=== PATIENT | female | born 1945 | race Caucasian/White ===

== ENCOUNTER → 2021-11-14 15:29 | Outpatient (CLI) | payer MEDICARE, MEDICAID, SELFPAY ==
[2021-11-14 18:04] LABS: Add Manual Diff / Slide Review NO; Basophils Absolute Auto 0 /uL (0-100); Basophils Percent Auto 0.4 % (0-2); Eosinophils Absolute Auto 100 /uL (0-450); Eosinophils Percent Auto 2.1 % (2-4); Hematocrit 38.1 % (36-46); Hemoglobin 12.9 g/dL (12.0-16.0); Lymphocytes Absolute Auto 1200 /uL (1100-4500); Lymphocytes Percent Auto 17.2 % (25-40); Mean Corpuscular HGB Conc 33.9 % (30-36); Mean Corpuscular Hemoglobin 31.8 PG (26-34); Monocytes Absolute Auto 500 /uL (0-900); Monocytes Percent Auto 7.7 % (3-14); Neutrophils Absolute Auto 4900 /uL (1500-7000); Neutrophils Percent Auto 72.6 % (50-75); Platelet Count 312 X10^3/uL (150-400); Red Blood Cell Count 4.05 X10^6/uL (4.0-5.2); Red Cell Distribution Width 12.6 % (11.6-14.8); White Blood Cell Count 6.8 X10^3/uL (4.5-11.0)
[2021-11-14 18:23] LABS: Cholesterol 170 mg/dL (140-199); HDL Cholesterol 52 mg/dL (40-60); LDL Cholesterol Calculated 97 mg/dL (<100); Triglycerides 107 mg/dL (35-150)
[2021-11-14 18:40] LABS: Vitamin D 25 Hydroxy (D3) 40.1 ng/mL (30.0-100.0)
[2021-11-14 18:40] LABS: Bacteria Urine Many (>30); Culture Indicated Urine Specimen Cultured; RBC Urine 1-5/HPF (0-5/HPF); WBC Urine 5-10/HPF (0-5/HPF)
[2021-11-14 18:59] LABS: Creatinine Urine Random 21.9 mg/dL; Protein (Total) Urine Random 11 mg/dL (0-12)
[2021-11-15 16:50] LABS: Free T4, Direct Thyroxine 1.01 ng/dL (0.78-2.19)
== END ==
PROVIDERS: PCP Family Medicine; Referring Provider Family Medicine; Visit Provider Family Medicine
DX: E55.9 Vitamin D deficiency, unspecified (principal); I10 Essential (primary) hypertension; E78.5 Hyperlipidemia, unspecified; M19.90 Unspecified osteoarthritis, unspecified site; M79.7 Fibromyalgia; Z13.29 Encounter for screening for other suspected endocrine disorder; R41.89 Other symptoms and signs involving cognitive functions and awareness
CPT/HCPCS: 36415; 80061; 81015; 82306; 82570; 84156; 84439; 84443; 85025; 87077; 87086; 87186

== ENCOUNTER → 2022-03-14 11:28 | Outpatient (CLI) | payer MEDICARE, MEDICAID, SELFPAY ==
--- NOTE | 2022-03-14 11:36 | DI.RAD.S_ITS ---
PROCEDURE: XR KNEE RT 3V INDICATIONS: BILATERAL KNEE PAIN TECHNIQUE: 3 views of the knee were acquired. COMPARISON: Located Within [facility], CR, XR KNEE LT 3V, 03/14/2022, 11:40. FINDINGS: Bones: No acute fractures or dislocations. No suspicious bony lesions. Tricompartmental degenerative changes present. Joint space loss at the medial compartment is severe with articular surface deformity and spurring. Mild lateral compartment narrowing, moderate patellofemoral compartment narrowing, spurring also present in both compartments. Soft tissues: No joint effusion. No suspicious soft tissue calcifications. IMPRESSION: Tricompartmental degenerative changes, severe at the medial compartment. Dictated by: Ministerio Parmar M.D. on 03/14/2022 at 13:52 Approved by: Ministerio Parmar M.D. on 03/14/2022 at 13:53
--- NOTE | 2022-03-14 11:36 | DI.RAD.S_ITS ---
PROCEDURE: XR KNEE LT 3V INDICATIONS: BILATERAL KNEE PAIN TECHNIQUE: 3 views of the knee were acquired. COMPARISON: [facility], CR, XR KNEE RT 3V, 03/14/2022, 11:40. FINDINGS: Bones: No acute fractures or dislocations. No suspicious bony lesions. Tricompartmental joint space loss, severe at the medial compartment, moderate at the lateral and patellofemoral compartments. Spurring and articular surface deformity also present at the medial compartment. Soft tissues: No joint effusion. No suspicious soft tissue calcifications. IMPRESSION: Tricompartmental degenerative changes of the knee, severe at the medial compartment. Dictated by: Ministerio Parmar M.D. on 03/14/2022 at 13:49 Approved by: Ministerio Parmar M.D. on 03/14/2022 at 13:51
== END ==
PROVIDERS: PCP Family Medicine; Referring Provider Family Medicine; Visit Provider Family Medicine
DX: M25.561 Pain in right knee (principal); M25.562 Pain in left knee; M19.90 Unspecified osteoarthritis, unspecified site
CPT/HCPCS: 73562

== ENCOUNTER → 2022-03-19 07:37 | Outpatient (CLI) | payer MEDICARE, MEDICAID, SELFPAY ==
[2022-03-19 09:19] LABS: TSH w/ Reflex to FT4 0.38 uIU/mL (0.47-4.68)
[2022-03-19 09:33] LABS: Vitamin B12 558 pg/mL (239-931)
[2022-03-19 10:15] LABS: Free T4, Direct Thyroxine 1.04 ng/dL (0.78-2.19)
[2022-03-26 01:36] LABS: Methylmalonic Acid,Serum 179 nmol/L (0-378)
== END ==
LOC: LAB 07:43 → RESP 09:05
PROVIDERS: PCP Family Medicine; Referring Provider Internal Medicine; Visit Provider Internal Medicine
DX: F03.B0 Unspecified dementia, moderate, without behavioral disturbance, psychotic disturbance, mood disturbance, and anxiety (principal); Z79.899 Other long term (current) drug therapy
CPT/HCPCS: 36415; 82607; 83921; 84439; 84443; 93005

== ENCOUNTER → 2022-10-07 08:28 | Outpatient (CLI) | payer MEDICARE, MEDICAID, SELFPAY ==
[2022-10-07 09:11] LABS: Add Manual Diff / Slide Review NO; Basophils Absolute Auto 0 /uL (0-100); Basophils Percent Auto 0.4 % (0-2); Eosinophils Absolute Auto 100 /uL (0-450); Eosinophils Percent Auto 1.4 % (2-4); Hematocrit 34.1 % (36-46); Hemoglobin 11.6 g/dL (12.0-16.0); Lymphocytes Absolute Auto 1000 /uL (1100-4500); Lymphocytes Percent Auto 12.5 % (25-40); Mean Corpuscular Hemoglobin 29.3 PG (26-34); Mean Corpuscular Volume 86.3 fL (80-100); Monocytes Absolute Auto 600 /uL (0-900); Monocytes Percent Auto 7.7 % (3-14); Neutrophils Absolute Auto 6400 /uL (1500-7000); Platelet Count 323 X10^3/uL (150-400); Red Blood Cell Count 3.95 X10^6/uL (4.0-5.2); Red Cell Distribution Width 13.3 % (11.6-14.8); White Blood Cell Count 8.2 X10^3/uL (4.5-11.0)
[2022-10-07 09:37] LABS: Alanine Aminotransferase 16 IU/L (<35); Albumin 3.8 g/dL (3.5-5.0); Albumin Globulin Ratio 1.5 (1.0-2.8); Alkaline Phosphatase 54 U/L (38-126); Aspartate Aminotransferase 21 IU/L (14-36); BUN Creatinine Ratio 24.4 (6-22); Bilirubin Total 0.4 mg/dL (0.2-1.3); Blood Urea Nitrogen 11 mg/dL (7-17); Calcium 8.7 mg/dL (8.4-10.2); Carbon Dioxide 25 mmol/L (22-32); Chloride 102 mmol/L (98-107); Cholesterol 181 mg/dL (140-199); Estimated Glomerular Filt Rate > 60 mL/min (>60); Globulin 2.6 g/dL (1.7-4.1); Glucose 99 mg/dL (80-110); HDL Cholesterol 49 mg/dL (40-60); HEMOLYSIS < 15 (0-50); LDL Cholesterol Calculated 108 mg/dL (<100); Sodium 134 mmol/L (137-145); Total Protein 6.4 g/dL (6.3-8.2); Triglycerides 120 mg/dL (35-150)
[2022-10-07 09:40] LABS: High Sensitivity CRP - Cardiac 3.6 mg/L (1.0-3.0)
== END ==
PROVIDERS: PCP Family Medicine; Referring Provider Family Medicine; Visit Provider Family Medicine
DX: E78.2 Mixed hyperlipidemia (principal); I10 Essential (primary) hypertension; R31.29 Other microscopic hematuria
CPT/HCPCS: 36415; 80053; 80061; 85025; 86140

== ENCOUNTER → 2024-05-31 10:46 | Outpatient (CLI) | payer MEDICARE, MEDICAID, SELFPAY ==
[2024-05-31 11:52] LABS: Creatinine Urine Random 68.32 mg/dL; Protein (Total) Urine Random 17 mg/dL (0-12); Protein Creatinine Ratio Urine 0.24 GRAM/24H
[2024-05-31 11:53] LABS: Add Manual Diff / Slide Review NO; Basophils Absolute Auto 0 /uL (0-100); Basophils Percent Auto 0.5 % (0-2); Eosinophils Absolute Auto 200 /uL (0-450); Eosinophils Percent Auto 2.5 % (2-4); Hematocrit 39.1 % (36-46); Hemoglobin 13.3 g/dL (12.0-16.0); Lymphocytes Absolute Auto 1200 /uL (1100-4500); Lymphocytes Percent Auto 14.1 % (25-40); Mean Corpuscular Hemoglobin 30.5 PG (26-34); Mean Corpuscular Volume 89.6 fL (80-100); Monocytes Absolute Auto 800 /uL (0-900); Neutrophils Absolute Auto 6200 /uL (1500-7000); Neutrophils Percent Auto 72.9 % (50-75); Platelet Count 329 X10^3/uL (150-400); Red Blood Cell Count 4.37 X10^6/uL (4.0-5.2); Red Cell Distribution Width 13.3 % (11.6-14.8); White Blood Cell Count 8.5 X10^3/uL (4.5-11.0)
[2024-05-31 12:22] LABS: Alanine Aminotransferase 16 IU/L (<35); Albumin 4.3 g/dL (3.5-5.0); Albumin Globulin Ratio 1.7 (1.0-2.8); Alkaline Phosphatase 72 U/L (38-126); Aspartate Aminotransferase 25 IU/L (14-36); Bilirubin Total 0.5 mg/dL (0.2-1.3); Blood Urea Nitrogen 18 mg/dL (7-17); Calcium 9.4 mg/dL (8.4-10.2); Carbon Dioxide 27 mmol/L (22-32); Chloride 100 mmol/L (98-107); Cholesterol 228 mg/dL (140-199); Estimated Glomerular Filt Rate > 60 mL/min (>60); Globulin 2.5 g/dL (1.7-4.1); Glucose 90 mg/dL (80-110); HDL Cholesterol 53 mg/dL (40-60); HEMOLYSIS < 15 (0-50); LDL Cholesterol Calculated 132 mg/dL (<100); Potassium 4.4 mmol/L (3.4-5.1); Sodium 135 mmol/L (137-145); Total Protein 6.8 g/dL (6.3-8.2); Triglycerides 217 mg/dL (35-150)
== END ==
PROVIDERS: PCP Family Medicine; Referring Provider Family Medicine; Visit Provider Family Medicine
DX: I10 Essential (primary) hypertension (principal); E78.2 Mixed hyperlipidemia
CPT/HCPCS: 36415; 80053; 80061; 82570; 84156; 85025; 86140

== ENCOUNTER → 2024-08-04 13:23 | Outpatient (CLI) | payer MEDICARE, MEDICAID, SELFPAY ==
--- NOTE | 2024-08-04 13:30 | DI.RAD.S_ITS ---
PROCEDURE: XR HAND RT 2V INDICATIONS: bump on hand TECHNIQUE: 3 views of the hand(s) acquired. COMPARISON: None. FINDINGS: Bones: Diffuse osteoporosis noted. Joints: Severe STT and 1st CMC degeneration appreciated. 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 Dictated by: Celestino Fox M.D. on 08/05/2024 at 13:02 Approved by: Celestino Fox M.D. on 08/05/2024 at 13:03
== END ==
PROVIDERS: PCP Family Medicine; Referring Provider Family Medicine; Visit Provider Physician Assistant
DX: M15.4 Erosive (osteo)arthritis (principal); M18.11 Unilateral primary osteoarthritis of first carpometacarpal joint, right hand; M11.231 Other chondrocalcinosis, right wrist; M67.40 Ganglion, unspecified site
CPT/HCPCS: 73120

== ENCOUNTER 2024-11-10 15:36 | Observation (INO) | payer MEDICARE, MEDICAID, SELFPAY ==
[2024-11-10] VITALS (19 sets, daily range): BP systolic 110–143; BP diastolic 59–105; PULSE 69–93; RESP 18–36; TEMP 36.9; O2SAT 97–100; BMI 26.4
[2024-11-10 16:27] LABS: Add Manual Diff / Slide Review NO; Hematocrit 30.9 % (36-46); Hemoglobin 10.2 g/dL (12.0-16.0); Lymphocytes Absolute Auto 1100 /uL (1100-4500); Mean Corpuscular HGB Conc 33.1 % (30-36); Mean Corpuscular Hemoglobin 29.2 PG (26-34); Mean Corpuscular Volume 88.3 fL (80-100); Platelet Count 336 X10^3/uL (150-400)
[2024-11-10 16:31] LABS: Alanine Aminotransferase 21 IU/L (<35); Albumin 3.5 g/dL (3.5-5.0); Albumin Globulin Ratio 1.3 (1.0-2.8); Alkaline Phosphatase 89 U/L (38-126); Blood Urea Nitrogen 16 mg/dL (7-17); Calcium 8.7 mg/dL (8.4-10.2); Carbon Dioxide 28 mmol/L (22-32); Chloride 100 mmol/L (98-107); Estimated Glomerular Filt Rate > 60 mL/min (>60); Globulin 2.8 g/dL (1.7-4.1); Glucose 121 mg/dL (70-99); HEMOLYSIS < 15 (0-50); Potassium 3.1 mmol/L (3.4-5.1); Sodium 134 mmol/L (137-145); Total Protein 6.3 g/dL (6.3-8.2)
[2024-11-10 16:45] LABS: INR 1.6 (0.9-1.3); Prothrombin Time 17.5 SECONDS (9.4-12.5)
[2024-11-10 16:47] LABS: PTT Partial Thromboplastin Tim 33 SECONDS (25.1-36.5)
--- NOTE | 2024-11-10 17:59 | DI.CT.S_ITS ---
PROCEDURE: CT ANGIO ABD/PEL GI BLEED INDICATIONS: GI bleed TECHNIQUE: After the administration of intravenous contrast, 2.5 mm sections acquired from the diaphragm to the iliac crests. 10 mm maximum intensity projection (MIP) coronal and sagittal reformats were then performed. For radiation dose reduction, the following was used: automated exposure control. COMPARISON: None. FINDINGS: Image quality: Diagnostic. Hyperattenuating material is present within the rectum and sigmoid colon, limiting evaluation. Abdominal aorta: No aortic aneurysm or evidence of acute aortic syndrome. Mesenteric arteries: Patent without hemodynamically significant stenosis. Renal arteries: Patent without hemodynamically significant stenosis. Lower chest: Large hiatal hernia. ABDOMEN: Liver: No solid mass. Gallbladder: No radiopaque gallstones or wall thickening. Biliary ducts: No biliary dilation. Pancreas: No ductal dilation. Spleen: Size is within normal limits. Adrenal Glands: No adrenal nodules. Kidneys and Ureters: No hydronephrosis. No solid mass. No complex renal cystic lesion which requires follow up. Stomach and Bowel: Normal colonic caliber, without significant wall thickening. Colonic diverticulosis without evidence of diverticulitis. No active GI hemorrhage. Peritoneum: No abnormal intraperitoneal fluid. No free air. Ventral Wall: No hernia. Simple appearing lipoma of the left internal abdominal musculature measuring 7.9 x 3.1 centimeter. Abdominal Nodes: No retroperitoneal or mesenteric adenopathy by size criteria. Vessels: Aorta, as above. Normal IVC. PELVIS: Pelvic Organs: Unremarkable. Bladder: Unremarkable. Pelvic Nodes: No enlarged lymph nodes. Miscellaneous: No inguinal hernias are seen. Bones: No aggressive osseous abnormality. L2 vertebral hemangioma. IMPRESSION: Hyperattenuating stool is present within the rectum and sigmoid colon, resulting in decreased examination sensitivity. No large, active GI hemorrhage. Large hiatal hernia containing stomach and this is the splenic flexure. No obstruction. Colonic diverticulosis without evidence of diverticulitis. Dictated by: Thanh Cabrera M.D. on 11/10/2024 at 18:35 Approved by: Thanh Cabrera M.D. on 11/10/2024 at 18:40
--- NOTE | 2024-11-10 18:09 | ED.GIBLEED ---
HPI - GI Bleed General Chief complaint: GI Bleed Stated complaint: Rectal Bleeding Time Seen by Provider: 11/10/24 17:58 Source: patient and EMS Mode of arrival: EMS History of Present Illness HPI Narrative: 79-year-old female history of impaired mobility, restless leg syndrome, hypertension, dyslipidemia, GERD, anxiety, depression, brought in from [facility] for rectal bleeding whereby they changed her brief and found to have claire blood for which patient is on Plavix at this time. Patient is a poor historian for which information was obtained from the nurse EMS report and previous old records. Other than what is stated 14 point review of system is negative. Related Data Home Medications ?Medication ?Instructions ?Recorded ?Confirmed ascorbic acid (vitamin C) 1,000 mg 1 g PO DAILY 12/17/21 08/04/24 capsule cholecalciferol (vitamin D3) 50 50 mcg PO DAILY 12/17/21 08/04/24 mcg (2,000 unit) capsule vitamin B complex 1 tab PO 12/17/21 08/04/24 aspirin 81 mg tablet,delayed 81 mg PO DAILY 04/12/24 08/04/24 release (Adult Low Dose Aspirin) meloxicam 7.5 mg tablet 7.5 mg PO DAILY 08/10/24 Previous Rx's ?Medication ?Instructions ?Recorded coenzyme Q10 75 mg capsule (Ultra 75 mg PO DAILY take with statin to 12/05/21 CoQ10) decrease side effects #90 caps Disabled Parking Permit #1 ea 12/17/21 donepezil 10 mg tablet (Aricept) 10 mg PO BEDTIME #90 tabs 06/04/22 atorvastatin 10 mg tablet 10 mg PO DAILY #90 tabs 06/07/24 citalopram 40 mg tablet 40 mg PO DAILY #90 tabs 06/07/24 losartan 100 1 tab PO DAILY #90 tabs 06/07/24 mg-hydrochlorothiazide 12.5 mg tablet propranolol 20 mg tablet 20 mg PO BID PRN anxiety about 06/07/24 travel #60 tabs Allergies Allergy/AdvReac Type Severity Reaction Status Date / Time codeine Allergy Severe Seizure Verified 08/04/24 12:53 Penicillins Allergy Severe Seizure Verified 08/04/24 12:53 fluconazole Allergy Intermediate Rash Verified 08/04/24 12:53 sulfamethoxazole (From AdvReac Intermediate Nausea Verified 08/04/24 12:53 Bactrim) trimethoprim (From Bactrim) AdvReac Intermediate Nausea Verified 08/04/24 12:53 Review of Systems Review of Systems ROS Unobtainable: All systems reviewed & are unremarkable except as noted in HPI and below Patient History Medical History (Updated 11/10/24 @ 19:48 by Celestino Smith DO) Microscopic hematuria Fibromyalgia Colon polyps Notalgia paresthetica Lipoma Hiatal hernia Surgical History (Updated 11/14/21 @ 14:58 by Yelena Ochoa CMA) History of breast lump/mass excision Family History (Updated 11/14/21 @ 15:00 by Yelena Ochoa CMA) Father Hypertension Alcoholism Mother Cancer Osteoporosis Sister Alcoholism Depression Hypertension Suicide Brother Alcoholism Social History Tobacco: How many years used: 10 alcohol intake: current (2 beers per day) substance use type: does not use Smoking Status: Never smoker Exam Narrative Exam Narrative: GENERAL: [79] year old patient appears stated age. Well-developed patient, in mild distress. HEAD: Atraumatic. Normocephalic. EYES: Pupils equal round and reactive. Extraocular motions intact. No scleral icterus. No injection or drainage. ENT: Nose without bleeding, purulent drainage. Throat without erythema, tonsillar hypertrophy or exudate. Airway patent. NECK: Trachea midline. Non tender CARDIOVASCULAR: Regular rate and rhythm without murmurs, gallops, or rubs. RESPIRATORY: Clear to auscultation. Breath sounds equal bilaterally. No wheezes, rales, or rhonchi. GASTROINTESTINAL: Abdomen soft, non-tender, nondistended. Rectal: Hemoccult positive EXTREMITIES: No edema or joint tenderness. BACK: Nontender without deformity or crepitance. No flank tenderness. NEURO: AOx2 SKIN: No rash or erythema of visible areas Initial Vital Signs Initial Vital Signs: Vital Signs Pulse Rate 87 11/10/24 15:41 Blood Pressure 117/68 11/10/24 15:41 Pulse Oximetry 99 11/10/24 15:41 Course Orders Ordered: ED Orders 11/10/24 15:46 Complete Blood Count AUTO DIFF Stat Comprehensive Metabolic Panel Stat Type and Screen Stat 11/10/24 16:30 PTT Partial Thromboplastin Kp Stat Prothrombin Time INR Stat 11/10/24 17:59 CT angio Abd/Pel GI Bleed Stat Lactated Ringer's (Lactated Ringers) 1,000 mls @ 1,000 mls/hr IV BOLUS ONE Stop: 11/10/24 18:58 Ondansetron HCl (Ondansetron 4 Mg/2 Ml Inj) 4 mg IV NOW PRN PRN Reason: Nausea And Vomiting Ondansetron HCl (Ondansetron 4 Mg Odt) 4 mg PO NOW PRN PRN Reason: Nausea And Vomiting Vital Signs Vital signs: Vital Signs - 8 hr 11/10/24 15:41 11/10/24 15:41 11/10/24 15:54 Temperature 98.5 F Pulse Rate 87 87 Respiratory Rate 18 Blood Pressure 117/68 117/68 Pulse Oximetry 99 98 Oxygen Delivery Method Room Air 11/10/24 16:00 11/10/24 16:00 11/10/24 16:30 Temperature Pulse Rate 80 80 Respiratory Rate 20 31 H Blood Pressure 110/70 Pulse Oximetry 100 99 Oxygen Delivery Method 11/10/24 17:00 11/10/24 17:06 11/10/24 17:06 Temperature Pulse Rate 83 93 H Respiratory Rate 36 H 34 H Blood Pressure 117/71 Pulse Oximetry 99 99 Oxygen Delivery Method MDM - GI Bleed Lab Data 11/10/24 15:46 11/10/24 15:46 Labs: Lab Results 11/10/24 11/10/24 Range/Units 15:46 16:30 WBC 4.7 (4.5-11.0) X10^3/uL RBC 3.49 L (4.0-5.2) X10^6/uL Hgb 10.2 L (12.0-16.0) g/dL Hct 30.9 L (36-46) % MCV 88.3 (80-100) fL MCH 29.2 (26-34) PG MCHC 33.1 (30-36) % RDW 17.4 H (11.6-14.8) % Plt Count 336 (150-400) X10^3/uL Neut % (Auto) 62.8 (50-75) % Lymph % (Auto) 22.7 L (25-40) % Robertson % (Auto) 12.0 (3-14) % Eos % (Auto) 1.7 L (2-4) % Baso % (Auto) 0.8 (0-2) % Neut # (Auto) 3000 (8855-3087) /uL Lymph # (Auto) 1100 (4506-4516) /uL Robertson # (Auto) 600 (0-900) /uL Eos # (Auto) 100 (0-450) /uL Baso # (Auto) 0 (0-100) /uL PT 17.5 H (9.4-12.5) SECONDS INR 1.6 H (0.9-1.3) APTT 33 (25.1-36.5) SECONDS Sodium 134 L (137-145) mmol/L Potassium 3.1 L (3.4-5.1) mmol/L Chloride 100 (98-107) mmol/L Carbon Dioxide 28 (22-32) mmol/L BUN 16 (7-17) mg/dL Creatinine 0.54 (0.52-1.04) mg/dL Estimated GFR > 60 (>60) mL/min BUN/Creatinine Ratio 29.6 H (6-22) Glucose 121 H (70-99) mg/dL Calcium 8.7 (8.4-10.2) mg/dL Total Bilirubin 0.4 (0.2-1.3) mg/dL AST 34 (14-36) IU/L ALT 21 (<35) IU/L Alkaline Phosphatase 89 (38-126) U/L Total Protein 6.3 (6.3-8.2) g/dL Albumin 3.5 (3.5-5.0) g/dL Globulin 2.8 (1.7-4.1) g/dL Albumin/Globulin Ratio 1.3 (1.0-2.8) Blood Type O Positive Antibody Screen Negative Imaging Data CT scan - abdomen/pelvis: Radiologist's Impression: [place] [id number] CT Scan Report Signed Patient: Jamila Berumen MR#: [id number] : 1945 Acct:[id number] Age/Sex: 79 / F Date of Service: 11/10/24 Loc: ED Accession Number: [id number] Procedure: CT angio Abd/Pel GI Bleed Ordering Provider: Celestino Smith D.O. PROCEDURE: CT ANGIO ABD/PEL GI BLEED INDICATIONS: GI bleed TECHNIQUE: After the administration of intravenous contrast, 2.5 mm sections acquired from the diaphragm to the iliac crests. 10 mm maximum intensity projection (MIP) coronal and sagittal reformats were then performed. For radiation dose reduction, the following was used: automated exposure control. COMPARISON: None. FINDINGS: Image quality: Diagnostic. Hyperattenuating material is present within the rectum and sigmoid colon, limiting evaluation. Abdominal aorta: No aortic aneurysm or evidence of acute aortic syndrome. Mesenteric arteries: Patent without hemodynamically significant stenosis. Renal arteries: Patent without hemodynamically significant stenosis. Lower chest: Large hiatal hernia. ABDOMEN: Liver: No solid mass. Gallbladder: No radiopaque gallstones or wall thickening. Biliary ducts: No biliary dilation. Pancreas: No ductal dilation. Spleen: Size is within normal limits. Adrenal Glands: No adrenal nodules. Kidneys and Ureters: No hydronephrosis. No solid mass. No complex renal cystic lesion which requires follow up. Stomach and Bowel: Normal colonic caliber, without significant wall thickening. Colonic diverticulosis without evidence of diverticulitis. No active GI hemorrhage. Peritoneum: No abnormal intraperitoneal fluid. No free air. Ventral Wall: No hernia. Simple appearing lipoma of the left internal abdominal musculature measuring 7.9 x 3.1 centimeter. Abdominal Nodes: No retroperitoneal or mesenteric adenopathy by size criteria. Vessels: Aorta, as above. Normal IVC. PELVIS: Pelvic Organs: Unremarkable. Bladder: Unremarkable. Pelvic Nodes: No enlarged lymph nodes. Miscellaneous: No inguinal hernias are seen. Bones: No aggressive osseous abnormality. L2 vertebral hemangioma. IMPRESSION: Hyperattenuating stool is present within the rectum and sigmoid colon, resulting in decreased examination sensitivity. No large, active GI hemorrhage. Large hiatal hernia containing stomach and this is the splenic flexure. No obstruction. Colonic diverticulosis without evidence of diverticulitis. Dictated by: Thanh Cabrera M.D. on 11/10/2024 at 18:35 Approved by: Thanh Cabrera M.D. on 11/10/2024 at 18:40 MDM Narrative Medical decision making narrative: All lab work, vital signs, nurse triage note, medication list, previous ER visits, and all imaging studies reviewed. WBC 4.7 hemoglobin 10.2 platelet 336 INR 1.6 sodium 134 potassium 3.1 chloride 100 CO2 28 BUN [address] abdomen and pelvis showed hyperattenuating stool is present within the rectum and sigmoid colon resulting in decreased examination sensitivity. No large active GI bleed. Large hiatal hernia containing stomach and this is in the splenic flexure no obstruction. Colonic diverticulosis without evidence of diverticulitis. Patient given fluids Protonix and potassium solution here. Case discussed with Surgeon renovation plant supervisor who recommended PPI drip and is available to scope if needed. Case d/w hospitalist who has graciously accepted the patient for inpatient admission. Differential diagnosis GI bleed upper versus lower, medication induced combination of Eliquis and Plavix. Discharge Plan Departure Patient Disposition: Admitted As Inpatient Clinical Impression: GI (gastrointestinal bleed) Qualifiers: GI bleed type/associated pathology: melena Qualified Code(s): K92.1 - Melena Admit Date/Time: 11/10/24 19:55
[2024-11-10] MEDS: LACTATED RINGERS 1,000 ML 1000 ML IV (18:13)
[2024-11-10] MEDS: PANTOPRAZOLE 40 MG VIAL IV (18:45)
[2024-11-10] MEDS: POTASSIUM CHLORIDE 20 MEQ/15 ML UDC 40 MEQ PO (20:02)
--- NOTE | 2024-11-10 21:46 | PM.HP.1 ---
History of Present Illness History of Present Illness Date Patient Seen: 11/10/24 Chief complaint: Rectal Bleeding Narrative: 79 y/o with PMH of very recent NSTEMI, V-fib arrest, PPM and PCI with NATHALIE to LAD in [facility] (10/14 - 11/07), history of dementia, GERD, HH, HTN, HLD, referred from SNF where she was discharged to after the PCI for black, tarry stools. Prior to hospitalization in with NSTEMI, 2nd degree AV block, PAF, she had an episode of hematemesis which repeated in the hospital. EGD revealed gastritis and hiatal hernia. Initially on Brillinta that was switched to Plavix. Discharged to SNF on Plavix and Eliquis. On admission to [facility] Hb 10.2, 3 points drop from few months ago. She had several black stools in the NF. Vital signs are stable and w/o angina. EKG ordered at the time of admission - pending.Without abdominal pain, nausea, vomiting or hematemesis. PT, PTT mildly elevated, hypokalemia of 3.1, Pending - troponin, EKG ED attending discussed the patient with general surgeon policyholder information clerk, Dr Mitchell, who will be consulting for possible EGD Admitted to medicine, monitored, NPO, IVFs, IV PPI. [facility] Medical History (Updated 11/10/24 @ 22:05 by Isael Sneed MD) Microscopic hematuria Fibromyalgia Colon polyps Notalgia paresthetica Lipoma Hiatal hernia Surgical History History of breast lump/mass excision Family History Father Hypertension Alcoholism Mother Cancer Osteoporosis Sister Alcoholism Depression Hypertension Suicide Brother Alcoholism Social History household members: none Smoking Status: Never smoker Tobacco: How many years used: 10 alcohol intake: current substance use type: does not use Meds Home Medications and Allergies Home Medications ?Medication ?Instructions ?Recorded ?Confirmed ?Type coenzyme Q10 75 mg capsule (Ultra 75 mg PO DAILY take with statin to 12/05/21 11/10/24 Rx CoQ10) decrease side effects #90 caps Disabled Parking Permit #1 ea 12/17/21 11/10/24 Rx ascorbic acid (vitamin C) 1,000 mg 1 g PO DAILY 12/17/21 11/10/24 History capsule cholecalciferol (vitamin D3) 50 50 mcg PO DAILY 12/17/21 11/10/24 History mcg (2,000 unit) capsule vitamin B complex 1 tab PO 12/17/21 08/04/24 History Held on 11/10/24. Instructions: Provider's Order donepezil 10 mg tablet (Aricept) 10 mg PO BEDTIME #90 tabs 06/04/22 11/10/24 Rx aspirin 81 mg tablet,delayed 81 mg PO DAILY 04/12/24 11/10/24 History release (Adult Low Dose Aspirin) Held on 11/10/24. Instructions: Provider's Order atorvastatin 10 mg tablet 10 mg PO DAILY #90 tabs 06/07/24 11/10/24 Rx citalopram 40 mg tablet 40 mg PO DAILY #90 tabs 06/07/24 11/10/24 Rx losartan 100 1 tab PO DAILY #90 tabs 06/07/24 11/10/24 Rx mg-hydrochlorothiazide 12.5 mg tablet Held on 11/10/24. Instructions: Provider's Order propranolol 20 mg tablet 20 mg PO BID PRN anxiety about 06/07/24 11/10/24 Rx Held on 11/10/24. travel #60 tabs Instructions: Provider's Order meloxicam 7.5 mg tablet 7.5 mg PO DAILY 08/10/24 11/10/24 History Held on 11/10/24. Instructions: Provider's Order apixaban 5 mg tablet 5 mg PO Q12H 11/10/24 11/10/24 History citalopram 10 mg tablet 10 mg PO DAILY 11/10/24 11/10/24 History clopidogrel 75 mg tablet 75 mg PO DAILY 11/10/24 11/10/24 History colchicine 0.6 mg tablet 0.6 mg PO DAILY arthritis 11/10/24 11/10/24 History donepezil 5 mg tablet 5 mg PO BEDTIME 11/10/24 11/10/24 History empagliflozin 10 mg tablet 10 mg PO DAILY 11/10/24 11/10/24 History lidocaine 4 % topical patch 1 patch topical Q24H 11/10/24 11/10/24 History loperamide 2 mg tablet 2 mg PO Q2-4H PRN loose stool 11/10/24 11/10/24 History losartan 25 mg tablet 25 mg PO DAILY 11/10/24 11/10/24 History melatonin 3 mg capsule 6 mg PO BEDTIME 11/10/24 11/10/24 History metoprolol succinate 25 mg 25 mg PO DAILY 11/10/24 11/10/24 History tablet,extended release 24 hr pantoprazole 40 mg tablet,delayed 40 mg PO BID 11/10/24 11/10/24 History release Allergies Allergy/AdvReac Type Severity Reaction Status Date / Time codeine Allergy Severe Seizure Verified 11/10/24 23:17 Penicillins Allergy Severe Seizure Verified 11/10/24 23:17 fluconazole Allergy Intermediate Rash Verified 11/10/24 23:17 sulfamethoxazole (From AdvReac Intermediate Nausea Verified 11/10/24 23:17 Bactrim) trimethoprim (From Bactrim) AdvReac Intermediate Nausea Verified 11/10/24 23:17 Review of Systems Review of Systems Narrative: General - poor historian, doesn't know why was admitted, denies fever or chills GI - w/o abdominal pain, nausea, vomiting. Doesn't know about black stools CVS - w/o chest pain or palpitations RS - denies shortness of breath Exam Vital Signs (past 8 hours): - 11/10/24 15:41 11/10/24 15:41 11/10/24 15:54 Temperature 98.5 F Pulse Rate 87 87 Respiratory Rate 18 Blood Pressure 117/68 117/68 Pulse Oximetry 99 98 Oxygen Delivery Method Room Air 11/10/24 16:00 11/10/24 16:00 11/10/24 16:30 Temperature Pulse Rate 80 80 Respiratory Rate 20 31 H Blood Pressure 110/70 Pulse Oximetry 100 99 Oxygen Delivery Method 11/10/24 17:00 11/10/24 17:06 11/10/24 17:06 Temperature Pulse Rate 83 93 H Respiratory Rate 36 H 34 H Blood Pressure 117/71 Pulse Oximetry 99 99 Oxygen Delivery Method 11/10/24 17:30 11/10/24 17:30 11/10/24 18:00 Temperature Pulse Rate 85 91 H Respiratory Rate 22 Blood Pressure 120/75 Pulse Oximetry 97 99 Oxygen Delivery Method 11/10/24 18:01 11/10/24 18:01 11/10/24 18:30 Temperature Pulse Rate 92 H 73 Respiratory Rate Blood Pressure 138/105 H Pulse Oximetry 100 Oxygen Delivery Method 11/10/24 18:49 11/10/24 18:49 11/10/24 19:00 Temperature Pulse Rate 76 Respiratory Rate 22 Blood Pressure 139/67 128/69 Pulse Oximetry 100 Oxygen Delivery Method 11/10/24 19:00 11/10/24 19:30 11/10/24 19:30 Temperature Pulse Rate 77 80 Respiratory Rate 20 Blood Pressure 128/76 Pulse Oximetry 100 100 Oxygen Delivery Method Room Air Room Air 11/10/24 20:00 11/10/24 20:00 11/10/24 20:30 Temperature Pulse Rate 89 Respiratory Rate Blood Pressure 143/80 H 118/67 Pulse Oximetry 98 Oxygen Delivery Method 11/10/24 20:30 11/10/24 21:00 11/10/24 21:00 Temperature Pulse Rate 84 79 Respiratory Rate 18 Blood Pressure 115/59 L Pulse Oximetry 99 99 Oxygen Delivery Method 11/10/24 21:30 11/10/24 21:30 Temperature Pulse Rate 83 Respiratory Rate 20 Blood Pressure 115/71 Pulse Oximetry 99 Oxygen Delivery Method Room Air Oxygen Delivery Method Room Air Narrative Exam Narrative: General - in no distress HEENT - atraumatic Psych - cognitive deficits GI - not distended, not tender CVS - RRR, DORIE, w/o leg edema or JVD RS - CTA Neuro - w/o focal deficits, dementia Objective Imaging CTA ABD & PEL: Radiologist's impression: Hyperattenuating stool is present within the rectum and sigmoid colon, resulting in decreased examination sensitivity. No large, active GI hemorrhage. Large hiatal hernia containing stomach and this is the splenic flexure. No obstruction. Colonic diverticulosis without evidence of diverticulitis. Labs 11/11/24 04:10 11/11/24 04:10 Labs: Laboratory Results - last 24 hr 11/10/24 11/10/24 15:46 16:30 WBC 4.7 RBC 3.49 L Hgb 10.2 L Hct 30.9 L MCV 88.3 MCH 29.2 MCHC 33.1 RDW 17.4 H Plt Count 336 Neut % (Auto) 62.8 Lymph % (Auto) 22.7 L [place] % (Auto) 12.0 Eos % (Auto) 1.7 L Baso % (Auto) 0.8 Neut # (Auto) 3000 Lymph # (Auto) 1100 [place] # (Auto) 600 Eos # (Auto) 100 Baso # (Auto) 0 PT 17.5 H INR 1.6 H APTT 33 Sodium 134 L Potassium 3.1 L Chloride 100 Carbon Dioxide 28 BUN 16 Creatinine 0.54 Estimated GFR > 60 BUN/Creatinine Ratio 29.6 H Glucose 121 H Calcium 8.7 Total Bilirubin 0.4 AST 34 ALT 21 Alkaline Phosphatase 89 Total Protein 6.3 Albumin 3.5 Globulin 2.8 Albumin/Globulin Ratio 1.3 Blood Type O Positive Antibody Screen Negative Assessment & Plan Assessment and plan (1) Upper GI bleed: Status: Acute (2) GERD (gastroesophageal reflux disease): Status: Acute (3) Hiatal hernia: Status: Acute (4) Acute blood loss anemia: Status: Acute (5) CAD (coronary artery disease): Status: Acute (6) HTN (hypertension): Qualifiers: Hypertension type: unspecified Qualified Code(s): I10 - Essential (primary) hypertension Status: Acute (7) Hyperlipidemia: Qualifiers: Hyperlipidemia type: mixed hyperlipidemia Qualified Code(s): E78.2 - Mixed hyperlipidemia Status: Acute (8) Dementia: Status: Acute Assessment & Plan narrative: Upper GI bleed - likely due to history of HH, GERD and DAPT with recently started Plavix. Also takes Meloxicam - ASA, Plavix held - IV PPI - NPO - IVFs - typed and crossed in the ED for possible PRBCs - surgery will consult for EGD CAD / s/p NATHALIE - record from [facility] should be obtained - she needs to continue with antiplatelets so EGD will be appreciated as it could potentially be therapeutic - Plavix taken on 11/10 in SNF, now on hold - statin on hold PAF / PPM for 2nd degree AV block - EKG pending - Eliquis held Spinal stenosis / Chronic back pain - home Meloxicam on hold HTN - off Toprol XL and losartan/HCTZ - prn IV metoprolol - telemetry monitoring Dementia / Anxiety / Depression - home Aricept, Celexa and prn propranolol on hold - w/o capacity to make informed decisions - healthcare proxy is shan Shabbir, ph. number [phone] DVT prophylaxis - SCDs Patient consented to telemedicine, two-way audio-visual encounter with RN assisting with the exam. Patient located at [facility], provider located in [place]. Time-Based Coding :: [TOTAL MINUTES] spent with patient and on the chart (including review of chart, obtaining history, exam, reviewing outside data, placing orders, documenting exam and treatment plan, and counseling patient) on [DATE].
[2024-11-10 22:49] LABS: Hematocrit 27.2 % (36-46); Hemoglobin 9.0 g/dL (12.0-16.0); Mean Corpuscular HGB Conc 33.1 % (30-36); Mean Corpuscular Hemoglobin 29.3 PG (26-34); Mean Corpuscular Volume 88.7 fL (80-100); Platelet Count 275 X10^3/uL (150-400)
[2024-11-10 23:12] LABS: Troponin I 0.102 ng/mL (0.01-0.034)
[2024-11-11] VITALS (7 sets, daily range): BP systolic 105–134; BP diastolic 50–88; PULSE 76–100; RESP 14–20; TEMP 36.1–36.7; O2SAT 93–98
[2024-11-11 04:47] LABS: Add Manual Diff / Slide Review NO; Hematocrit 29.5 % (36-46); Hemoglobin 9.7 g/dL (12.0-16.0); Lymphocytes Absolute Auto 1000 /uL (1100-4500); Mean Corpuscular HGB Conc 33.0 % (30-36); Mean Corpuscular Hemoglobin 29.4 PG (26-34); Mean Corpuscular Volume 88.9 fL (80-100); Platelet Count 295 X10^3/uL (150-400)
[2024-11-11 05:10] LABS: Blood Urea Nitrogen 10 mg/dL (7-17); Calcium 8.5 mg/dL (8.4-10.2); Carbon Dioxide 25 mmol/L (22-32); Chloride 103 mmol/L (98-107); Estimated Glomerular Filt Rate > 60 mL/min (>60); Glucose 88 mg/dL (70-99); HEMOLYSIS < 15 (0-50); Potassium 3.8 mmol/L (3.4-5.1); Sodium 134 mmol/L (137-145)
--- NOTE | 2024-11-11 07:28 | PM.PN.1 ---
Subjective Subjective Interval history: Summary: 79 y/o with PMH of very recent NSTEMI, V-fib arrest, PPM and PCI with NATHALIE to LAD in [facility] (10/14 - 11/07), history of dementia, GERD, HH, HTN, HLD, referred from SNF where she was discharged to after the PCI for black, tarry stools. Prior to hospitalization in with NSTEMI, 2nd degree AV block, PAF, she had an episode of hematemesis which repeated in the hospital. EGD revealed gastritis and hiatal hernia. Initially on Brillinta that was switched to Plavix. Discharged to SNF on Plavix and Eliquis. On admission to [facility] Hb 10.2, 3 points drop from few months ago. She had several black stools in the NF. Vital signs are stable and w/o angina. EKG ordered at the time of admission - pending.Without abdominal pain, nausea, vomiting or hematemesis. PT, PTT mildly elevated, hypokalemia of 3.1, Pending - troponin, EKG ED attending discussed the patient with general surgeon manager utilization review, Dr Mitchell, who will be consulting for possible EGD Admitted to medicine, monitored, NPO, IVFs, IV PPI. S: She does have cognitive impairment, however she was interviewed with her son in the room. She denies any abdominal pain, hematemesis, nausea or other problems. She was had 2 brown stools this morning. He notes frequent stooling since a discharge from [facility] several weeks ago. [facility] was a [facility]ena [facility] prompting transfer this morning. O: Temperature 97.7 F 97.0 F L Pulse Rate 76 77 Respiratory Rate 16 14 Blood Pressure 130/88 134/65 Pulse Oximetry 98 98 NAD, alert and oriented. Fluent speech. Lungs are clear, normal rate and effort. Heart is regular, no murmur gallop or rub. Abdomen is soft, non distended. Extremities are free of edema. A/P: 1. Possible melena, resolved. 2. CAD S/P recent NATHALIE. Stable. 3. PAF, stable. 4. Spinal stenosis and chronic back pain, stable. 5. HTN, stable. - off Toprol XL and losartan/HCTZ 6. Dementia, stable. 7. Anxiety and depression, stable. PLAN: -given the normal color of stools today, we will simply give her a diet and monitor for another night to see if there is any evidence of rectal bleeding. -we will resume antiplatelet and anticoagulation medications today. -[facility] -we will leave an IV out as she declines or removed this whenever once placed. -we will check stools for evidence of infection with a PCR. -her son agrees to the general plan as outlined. DVT prophylaxis - SCDs Exam Vital Signs (past 8 hours): - 11/11/24 03:19 11/11/24 05:30 Temperature 97.7 F 97.0 F L Pulse Rate 76 77 Respiratory Rate 16 14 Blood Pressure 130/88 134/65 Pulse Oximetry 98 98 Oxygen Delivery Method Room Air Objective Labs 11/11/24 04:10 11/11/24 04:10 Labs: Laboratory Results - last 24 hr 11/10/24 11/10/24 11/10/24 15:46 16:30 22:42 WBC 4.7 4.4 L RBC 3.49 L 3.07 L Hgb 10.2 L 9.0 L Hct 30.9 L 27.2 L MCV 88.3 88.7 MCH 29.2 29.3 MCHC 33.1 33.1 RDW 17.4 H 17.5 H Plt Count 336 275 Neut % (Auto) 62.8 Lymph % (Auto) 22.7 L [place] % (Auto) 12.0 Eos % (Auto) 1.7 L Baso % (Auto) 0.8 Neut # (Auto) 3000 Lymph # (Auto) 1100 [place] # (Auto) 600 Eos # (Auto) 100 Baso # (Auto) 0 PT 17.5 H INR 1.6 H APTT 33 Sodium 134 L Potassium 3.1 L Chloride 100 Carbon Dioxide 28 BUN 16 Creatinine 0.54 Estimated GFR > 60 BUN/Creatinine Ratio 29.6 H Glucose 121 H Calcium 8.7 Total Bilirubin 0.4 AST 34 ALT 21 Alkaline Phosphatase 89 Troponin I 0.102 H Total Protein 6.3 Albumin 3.5 Globulin 2.8 Albumin/Globulin Ratio 1.3 Blood Type O Positive Antibody Screen Negative 11/11/24 04:10 WBC 4.4 L RBC 3.32 L Hgb 9.7 L Hct 29.5 L MCV 88.9 MCH 29.4 MCHC 33.0 RDW 17.3 H Plt Count 295 Neut % (Auto) 60.6 Lymph % (Auto) 22.1 L [place] % (Auto) 13.6 Eos % (Auto) 3.2 Baso % (Auto) 0.5 Neut # (Auto) 2700 Lymph # (Auto) 1000 L [place] # (Auto) 600 Eos # (Auto) 100 Baso # (Auto) 0 PT INR APTT Sodium 134 L Potassium 3.8 Chloride 103 Carbon Dioxide 25 BUN 10 Creatinine 0.45 L Estimated GFR > 60 BUN/Creatinine Ratio 22.2 H Glucose 88 Calcium 8.5 Total Bilirubin AST ALT Alkaline Phosphatase Troponin I Total Protein Albumin Globulin Albumin/Globulin Ratio Blood Type Antibody Screen [facility] Medical History Microscopic hematuria Fibromyalgia Colon polyps Notalgia paresthetica Lipoma Hiatal hernia Surgical History History of breast lump/mass excision Family History Father Hypertension Alcoholism Mother Cancer Osteoporosis Sister Alcoholism Depression Hypertension Suicide Brother Alcoholism Social History household members: none Smoking Status: Never smoker Tobacco: How many years used: 10 alcohol intake: current substance use type: does not use Assessment & Plan Time-Based Coding :: [TOTAL MINUTES] spent with patient and on the chart (including review of chart, obtaining history, exam, reviewing outside data, placing orders, documenting exam and treatment plan, and counseling patient) on [DATE]. Quality VTE Deep Vein Thrombosis/Pulmonary Embolism Present on Admission: No
--- NOTE | 2024-11-11 13:26 | CM.DANOTE ---
Initial DCP Assessment Visit Note Reviewed EMR and team rounds for pt's medical status and updates. Met with pt/son/Dr. Berumen at bedside to introduce self/role and assess needs. Pt is currently residing at [facility] for rehab, had been at [facility] for several weeks prior to that. Son is meeting with [facility] today to discuss LTC options, possibly at [facility]. Plan is return to facility, [facility]: Friday, 11/12. Facility will transport if they have availability. Payor: [facility] PCP: Dolores Jarvis Pt is a 79 year-old F who presented to the ED via EMS from [facility] for rectal bleeding. Pt has impaired mobility at baseline, moderate dementia, and is not a good self historian-defer to son, Shabbir, for hx and decision making needs. Son and dtr-in-law live locally in [place], and are her primary supports. PT was started on IV fluids, protonix and potassium, and admitted to the unit for continued monitoring and tx. No EDG indicated at this time, pt is improving. DCP will continue to monitor for any further evolving d/c needs and coordination of return transportation. Discharge Planning/Care Management CM Discharge Assessment Start: 11/10/24 23:15 Freq: Status: Active Protocol: Document 11/11/24 13:21 DPL (Rec: 11/11/24 13:23 DPL [id number]) Discharge Planning Assessment Assigned Discharge JOSE Ramírez Certified Public Accountant Provider Karla Jarvis Insurance [facility] Advance Directives? Yes Advance Directives Yes on File History Provided By Patient,Family Member,Medical Record Has Patient been No admitted in last 30 days? Prior Living Skilled Nurse Facility Arrangements Household Members none Type of Relies on Others transporation used prior to admit Comment She is rehab at [facility], however son is working on long-term placement. Facility Name [facility] Admitted From: Willing to Return to Yes Facility? Independent with ADL No: modified independent with a walker 's Is patient alert and No: alert, not oriented oriented? Needs Assistance Bathing,Grooming,Meal Prep,Toileting,Managing With Medications,Home Chores / Shopping Caregiver for No Another Community Services Physical Therapy used prior to admission: DME Already Rented / Bath Bench,Wheelchair,Elevated Toilet Seat,FWW / Walker Owned Patient/Family [facility] Facility Preference Barriers to No Discharge Discharge Plan [facility] Facility Transportation Facility Arrangement Referrals Initiated None needed Whiteboard Updated Yes in Patient Room with name and ext. # of [facility] Review Status In Process Please Provide Date 11/11/24 Initial DC Assessment Was Performed
[2024-11-11] MEDS: CLOPIDOGREL 75 MG TABLET PO (13:37)
[2024-11-11] MEDS: CITALOPRAM 10 MG TABLET PO (13:37)
[2024-11-11] MEDS: METOPROLOL ER 25 MG TABLET PO (13:37)
[2024-11-11] MEDS: ASPIRIN EC 81 MG TABLET PO (13:37)
[2024-11-11] MEDS: LOSARTAN 25 MG TABLET PO (13:40)
[2024-11-11] MEDS: ACETAMINOPHEN 325 MG TABLET 650 MG PO (16:15)
[2024-11-11] MEDS: DONEPEZIL 5 MG TABLET PO (21:14)
[2024-11-11] MEDS: ATORVASTATIN 20 MG TABLET 10 MG PO (21:14)
[2024-11-12] VITALS (7 sets, daily range): BP systolic 99–120; BP diastolic 61–70; PULSE 79–91; RESP 15–17; TEMP 36.1–36.8; O2SAT 98–99
[2024-11-12 04:42] LABS: Hematocrit 28.7 % (36-46); Hemoglobin 9.4 g/dL (12.0-16.0)
[2024-11-12] MEDS: LOSARTAN 25 MG TABLET PO (09:41)
[2024-11-12] MEDS: METOPROLOL ER 25 MG TABLET PO (09:41)
[2024-11-12] MEDS: ASPIRIN EC 81 MG TABLET PO (09:41)
[2024-11-12] MEDS: CLOPIDOGREL 75 MG TABLET PO (09:41)
[2024-11-12] MEDS: CITALOPRAM 10 MG TABLET PO (09:42)
--- NOTE | 2024-11-12 13:55 | PT.IIE ---
Current Diagnoses Acute posthemorrhagic anemia (11/10/24) Mixed hyperlipidemia (11/10/24) Unspecified dementia, unspecified severity, without behavioral disturbance, psychotic disturbance, mood disturbance, and anxiety (11/10/24) Essential (primary) hypertension (11/10/24) Atherosclerotic heart disease of [place] coronary artery without angina pectoris (11/10/24) Gastro-esophageal reflux disease without esophagitis (11/10/24) Diaphragmatic hernia without obstruction or gangrene (11/10/24) Gastrointestinal hemorrhage, unspecified (11/10/24) Surgical History (Last Reviewed 11/11/24 @ 07:29 by Aj Berumen MD) History of breast lump/mass excision Medical History (Last Reviewed 11/11/24 @ 07:29 by Aj Berumen MD) Colon polyps Fibromyalgia Hiatal hernia Lipoma Microscopic hematuria Notalgia paresthetica Physical Therapy Inpatient Evaluation/Re-Eval M1 PT/OT-IP Prior Functional Status Start: 11/12/24 14:37 Freq: NEEDED Status: Active Protocol: Document 11/12/24 13:55 AB (Rec: 11/12/24 14:52 AB [id number]) Medical Review Prior Functional Status Medical History Yes Reviewed Communication able to make needs known; has difficulty with short term memory Mobility and Gait pt stated that she was modified independent with all mobilities prior to falling a few weeks ago and able to ambulation using FWW indoors, uses 4WW for outdoor mobility; pt was d/c'd to [facility] after last hospitalization. Social History Household Members none Living Arrangements Apartment/Condo Number of Floors ( One Floor Floors) Number of Stairs To pt stated that she lives in a senior apartment Enter/Railing? Home Environment Standard Height Toilet,Tub/Shower Home Equipment Front Wheel Walker,Four Wheel Walker,Shower Seat with Backrest,Hand Held Shower,Grab Bars Near Toilet,Grab Bars In Shower Additional Social pt has an adjustable bed History Comment M2 PT-IP Current Condition Start: 11/12/24 14:37 Freq: NEEDED Status: Active Protocol: Document 11/12/24 13:55 AB (Rec: 11/12/24 14:52 AB [id number]) Physical Therapy Current Condition Current Condition Evaluation Date 11/12/24 Treatment Diagnosis GI bleed; difficulty in walking Onset Date 11/10/24 M3 PT-IP Subjective Start: 11/12/24 14:37 Freq: NEEDED Status: Active Protocol: Document 11/12/24 13:55 AB (Rec: 11/12/24 14:52 AB [id number]) Subjective Physical Therapy Visit Type Type Initial Evaluation Visit Start Time 13:55 Visit Stop Time 14:20 Number of EXPEDITIONARY FIGHTING VEHICLE CREWMAN Visits 0 Physical Therapy Visit Comments Patient Comments agreeable to do PT Therapy Pain Assessment Pain When Pain Assessed During Mobility Pain Present Pain Present Pain Reported Location Bilateral Knee Scale Used pain scale not stated Pain Behaviors Guarding Pain Management Distraction,Modification of Treatment,Re-positioning, Techniques Timing of Activity with Medications M4 PT-IP Mobility and Gait Start: 11/12/24 14:37 Freq: NEEDED Status: Active Protocol: Document 11/12/24 13:55 AB (Rec: 11/12/24 14:52 [id number]) PT-Bed Mobility Assessment Supine to Sit Supine to Sit Standby Assistance PT-Transfer Assessment Sit to and From Stand Sit to and from Contact Guard Assistance,1 Person Assistance,2 Person Stand Assistance Equipment Transfer Assistive Gait Belt,Front Wheeled Walker Device Orthotic/Prosthetic No Devices or Brace: Transfers Transfer Destination Bed Transfer Technique ambulated Transfer Ability Level of Assist Contact Guard Assistance,1 Person Assistance,Use of Upper Extremities Comments Mobility Comments pt in bed and agreeable to do PT. obtained PLOF and home set up. BP: 99/68 pt completed supine to sit SBA. able to sit on EOB SBA. sit to stand CGA and ambulated using FWW ~ 150ft initial CGA but retirement requiring min A and cues. pt presents with antalgic gait with chronic bilateral knee pain affecting ambulation. pt agreed to stay up on chair. positioned pt on the chair. call light and table placed within reach. Gait Assessment Gait Gait Assistance Contact Guard Assist,Minimum Assistance Required: Distance (Feet) 150 Able to Maintain Yes Weight Bearing Status During Gait Assistive Devices Assistive Device Gait Belt,Front Wheeled Walker Orthotic/Prosthetic No Devices or Brace: Gait Deviations General Gait Pattern Antalgic,Decreased Stride Length,Decreased Feet Clearance Factors Limiting Gait Function Factors Limiting Decreased Activity Tolerance,Decreased Strength, Gait Function Difficulty Following Directions,Pain,Poor Balance,Poor Safety Awareness PT-Balance Assessment Sitting Balance and Reactions Static Sitting Normal Balance Ability Dynamic Sitting Good Balance Ability Standing Balance and Reactions Static Standing Fair Balance Ability Dynamic Standing Fair Balance Ability Device Used FWW M5 PT-IP Objective Assessments Start: 11/12/24 14:37 Freq: NEEDED Status: Active Protocol: Document 11/12/24 13:55 AB (Rec: 11/12/24 14:52 AB [id number]) Orientation Orientation/Cognition Level of Alertness Alert Orientation Name Safety Awareness Decreased Safety Awareness Memory Description Short Term Impaired,Structural Steel Engineer Impaired Gross Range of Motion Lower Extremity ROM Assessment Within Functional Limits Strength Lower Extremity Strength Assessment Within Functional Limits Muscle Tone Muscle Tone WNL Yes M6 PT-IP Treatment Start: 11/12/24 14:37 Freq: NEEDED Status: Active Protocol: Document 11/12/24 13:55 AB (Rec: 11/12/24 14:52 AB [id number]) Physical Therapy Treatment Education Education Provided Safety M7 PT-IP Assessment and Plan Start: 11/12/24 14:37 Freq: NEEDED Status: Active Protocol: Document 11/12/24 13:55 AB (Rec: 11/12/24 14:52 AB [id number]) PT Summary Assessment and Plan Potential Rehabilitation Good Potential Status of Condition Stable at Evaluation Summary Impairments Pain,Balance,Coordination,Sensation,Tone,Cognition,Bed Mobility,Transfers,Gait,Activity Tolerance Assessment Summary pt is an 79 y/o F who is admitted for GI bleed. pt requiring CGA to min A with ambulation using FWW. pt with memory issues affecting safety awareness and mobility independence. pt will benefit from SNF rehab to improve overall strength and function. Goals Bed Mobility Goal Independent Transfer Goal Independent,Front Wheeled Walker Gait Goal Independent,Front Wheel Walker Gait Distance 200 Days to Meet Goals 10 Frequency of Treatment Frequency Of Once a Day Treatment Treatment Plan Physical Therapy Bed Mobility Training,Transfer Training,Gait Training, Treatment Plan Therapeutic Exercise,Balance Retraining,Discharge Planning,Hot or Cold Pack,Neuromuscular Re-ed, Coordination Retraining,Manual Therapy Precautions Other Precautions falls Recommendations To Nursing Amount of Assist 1 Person Assist Needed Discharge Recommendations PT Discharge SNF Rehab Recommendations Transportation Needs Private Vehicle,Wheelchair/Cabulance at Discharge - PT assist 1
--- NOTE | 2024-11-12 14:16 | P.PN_ITS ---
Subjective Subjective Interval history: Summary: 79 y/o with PMH of very recent NSTEMI, V-fib arrest, PPM and PCI with NATHALIE to [facility] in [place] (10/14 - 11/07), history of dementia, GERD, HH, HTN, HLD, referred from SNF where she was discharged to after the PCI for black, tarry stools. Prior to hospitalization in with NSTEMI, 2nd degree AV block, PAF, she had an episode of hematemesis which repeated in the hospital. EGD revealed gastritis and hiatal hernia. Initially on Brillinta that was switched to Plavix. Discharged to SNF on Plavix and Eliquis. On admission to [facility] Hb 10.2, 3 points drop from few months ago. She had several black stools in the NF. Vital signs are stable and w/o angina. EKG ordered at the time of admission - pending.Without abdominal pain, nausea, vomiting or hematemesis. PT, PTT mildly elevated, hypokalemia of 3.1, Admitted to medicine, monitored, NPO, IVFs, IV PPI. 11/12: To brown stools, no diarrhea, no melena. Hemoglobin remained stable. We attempted to get her back to [facility], however she needed now have a pre authorization from [facility]. This is not able to be obtained due to it being Friday. She was not able to leave the hospital, likely now until Friday. S: She was doing well, alert and calm. She was no problems. No abdominal pain, nausea or vomiting. One brown stool. O: NAD, alert and oriented. Fluent speech. Lungs are clear, normal rate and effort. Heart is regular, no murmur gallop or rub. Abdomen is soft, non distended. Extremities are free of edema. A/P: 1. Concern for melena with to brown stools since arriving at the hospital, resolved. 2. CAD S/P recent NATHALIE. Stable. 3. PAF, stable. 4. Spinal stenosis and chronic back pain, stable. 5. HTN, stable. - off Toprol XL and losartan/HCTZ 6. Dementia, stable. 7. Anxiety and depression, stable. PLAN: -returned to [facility] pending a authorization from her [facility]. Exam Vital Signs (past 8 hours): - 11/12/24 09:41 11/12/24 09:41 11/12/24 10:26 Temperature 97.4 F L Pulse Rate 79 Respiratory Rate 16 Blood Pressure 120/69 120/69 105/70 Pulse Oximetry 98 Oxygen Flow Rate 0 Oxygen Delivery Method Room Air Oxygen Flow Rate 0 Objective Labs 11/12/24 03:58 11/11/24 04:10 Labs: Laboratory Results - last 24 hr 11/12/24 03:58 Hgb 9.4 L Hct 28.7 L PFSH Medical History Microscopic hematuria Fibromyalgia Colon polyps Notalgia paresthetica Lipoma Hiatal hernia Surgical History History of breast lump/mass excision Family History Father Hypertension Alcoholism Mother Cancer Osteoporosis Sister Alcoholism Depression Hypertension Suicide Brother Alcoholism Social History household members: none Smoking Status: Never smoker Tobacco: How many years used: 10 alcohol intake: current substance use type: does not use Assessment & Plan Time-Based Coding :: [TOTAL MINUTES] spent with patient and on the chart (including review of chart, obtaining history, exam, reviewing outside data, placing orders, documenting exam and treatment plan, and counseling patient) on [DATE]. Quality VTE Deep Vein Thrombosis/Pulmonary Embolism Present on Admission: No
[2024-11-12] MEDS: ACETAMINOPHEN 325 MG TABLET 650 MG PO ×2 (14:59→20:32)
--- NOTE | 2024-11-12 16:24 | CM.DPNOTE ---
DCP Continued: Reviewed EMR and team rounds for pt?s medical status. Per hospitalist, pt would benefit from returning to [facility] as she is medically stable. Per Leon at [facility], pt requires a new request for SNF authorization with [facility] Medicare insurance; requesting a PT/OT evaluation. PHILOSOPHY INSTRUCTOR discussed above with pt Shabbir torrez, hospitalist, RN. Added PT/OT eval orders. Per PT, recommending SNF Rehab. Pending OT evaluation completion. PHILOSOPHY INSTRUCTOR sent PT evaluation to [facility] to add to [facility] Medicare authorization request, will need OT eval sent when available. PHILOSOPHY INSTRUCTOR discussed namrata packet with pt son, as he was concerned about Observation status. Per his request, sent packet via email as well as printed copy and placed in pt chart. Plan: Pending insurance authorization for SNF Rehab at [facility], anticipating discharge on Friday, 11/15, or sooner if received auth. CM Team will continue to follow for coordination of discharge plans. LISS SantanaSW
[2024-11-12 16:37] LABS: Clostridium difficile toxin AB Not Detected (Not Detect); Enteroaggregative E.coli Not Detected (Not Detect); Enteropathogenic E.coli Not Detected (Not Detect); Enterotoxigenic E.coli It/st Not Detected (Not Detect); Plesiomonsa shigelloides Not Detected (Not Detect); Shiga-like toxin-prod E.coli Not Detected (Not Detect)
--- NOTE | 2024-11-12 16:56 | OT.IP.EVAL ---
Current Diagnoses Acute posthemorrhagic anemia (11/10/24) Mixed hyperlipidemia (11/10/24) Unspecified dementia, unspecified severity, without behavioral disturbance, psychotic disturbance, mood disturbance, and anxiety (11/10/24) Essential (primary) hypertension (11/10/24) Atherosclerotic heart disease of [place] coronary artery without angina pectoris (11/10/24) Gastro-esophageal reflux disease without esophagitis (11/10/24) Diaphragmatic hernia without obstruction or gangrene (11/10/24) Gastrointestinal hemorrhage, unspecified (11/10/24) Past Medical History (Last Reviewed 11/11/24 @ 07:29 by Aj Berumen MD) Colon polyps Fibromyalgia Hiatal hernia Lipoma Microscopic hematuria Notalgia paresthetica Surgical History (Last Reviewed 11/11/24 @ 07:29 by Aj Berumen MD) History of breast lump/mass excision Occupational Therapy Inpatient Evaluation/Re-Eval M1 PT/OT-IP Prior Functional Status Start: 11/12/24 14:37 Freq: NEEDED Status: Active Protocol: Document 11/12/24 16:42 [facility] (Rec: 11/12/24 16:56 [facility] Desktop) Medical Review Prior Functional Status Medical History Yes Reviewed Communication able to make needs known; has difficulty with short term memory Mobility and Gait pt stated that she was modified independent with all mobilities prior to falling a few weeks ago and able to ambulation using FWW indoors, uses 4WW for outdoor mobility; pt was d/c'd to [facility] after last hospitalization. Activities of Daily pt states that she has a CG on and who goes Living and IADL's grocery shopping, cooks, and cleans for her. The cg provides meals ahead for the week or her son comes and prepares meals. pt reports being I with BADLs. Pt performs a sponge bath at home. Social History Household Members none Living Arrangements Apartment/Condo Number of Floors ( One Floor Floors) Number of Stairs To pt stated that she lives in a senior apartment Enter/Railing? Home Environment Standard Height Toilet,Tub/Shower Home Equipment Front Wheel Walker,Four Wheel Walker,Shower Seat with Backrest,Hand Held Shower,Grab Bars Near Toilet,Grab Bars In Shower Additional Social pt has an adjustable bed History Comment M2 OT-IP Current Condition Start: 11/12/24 16:42 Freq: Status: Active Protocol: Document 11/12/24 16:42 IV[facility]NG[facility] (Rec: 11[facility]12/24 [facility] Current Condition Current Condition Evaluation Date 11/12/24 Treatment Diagnosis GI bleed, decreased self care Diagnosis Onset Date 11/10/24 M3 OT- IP Subjective and Pain Start: 11/12/24 16:42 Freq: Status: Active Protocol: Document 11/12/24 16:42 [facility] (Rec: 11/12/24 16:56 [facility]- Subjective Occupational Therapy Visit Type Type Initial Evaluation Visit Start Time 15:45 Visit Stop Time 16:10 Occupational Therapy Visit Comments Patient Comments Pt agreed to participate in OT eval. Patient/Caregiver Pt would like to go back to [facility] until she is Goals strong enough to return home. OT Pain Assessment Pain When Pain Assessed After Treatment Pain Present Pain Present Denied Pain M4 OT- IP ADL's Start: 11/12/24 16:42 Freq: Status: Active Protocol: Document 11/12/24 16:42 RUTHANNELLYSIERRAANGIE (Rec: 11/12/24 16:56 [facility] OT [id number] Comments OT Self-Feeding not observed Comments OT ADL-Grooming General Evaluation Grooming Ability Standby Assistance Areas Needing Retrieving/Set-up of Grooming Items Assistance Comments OT Grooming Comments Pt brushes her hair sink side after OT retrieves brush OT ADL-Oral Care Comments Oral Care Comments not observed OT ADL-Dressing General Eval Lower Body Dressing Standby Assistance Ability Areas Needing Underpants/Brief,Socks Assistance OT ADL-Toileting General Evaluation Toileting Ability Contact Guard Assistance Devices Toileting Assistive Commode Devices OT ADL-Bathing Comments OT Bathing Comments not observed. pt performs sponge bath at baseline M5 OT- IP IADL's Start: 11/12/24 16:42 Freq: Status: Active Protocol: Document 11/12/24 16:42 THALIA (Rec: 11/12/24 16:56 [facility]) OT-Instrumental Activities of Daily Living Deficits IADL Deficits No Deficits Identified Medication Management Medication pt may need assist on dc based on SLUMS assessment. Pt Management Comments would benefit from further assessment Money Management Money Management Caregiver Provides Assistance Meal Preparation Meal Preparation Caregiver Provides Assist Lumber Puller Lumber Puller Caregiver Provides Assist Driving Driving Caregiver Provides Assist M6 OT- IP Functional Cognition Start: 11/12/24 16:42 Freq: Status: Active Protocol: Document 11/12/24 16:42 [facility] (Rec: 11/12/24 16:56 [facility] Desktop) Cognitive Factors Limiting Selfcare Function Cognitive Ability Level of Alertness Alert Patient Orientation Name,Age,Birthday,Place,Situation Attention Span Capable of Focused Attention,Capable of Sustained Ability Attention Ability to Follow Able to Follow Multi-Step Commands Commands Memory Description Immediate Intact,Short Term Impaired Cognitive Tests SLUMS Pt is oriented to the year and state, is able to delay recall 2/5 items, is able to do simple addition but unable to do subtraction, is able to recall 14 animals in 60 seconds, correctly labels the clock and time requested, correctly identifies the triangle and size related question to shape, and is able to answer 1/4 questions concerning a short story. Overall, pt scores 15/30 which is indicative of dementia. Cognitive Comments Cognitive Assessment Pt would benefit from Aj Popdeem assessment. Comments OT- Vision and Hearing OT- Hearing Assessment OT- Hearing WFL Assessment OT- Vision Assessment Visual Acuity Glasses For Reading M7 OT- IP Mobility and Balance Start: 11/12/24 16:42 Freq: Status: Active Protocol: Document 11/12/24 16:42 [facility] (Rec: 11/12/24 16:56 [facility]- Bed Mobility Assessment Supine to Sit Supine to Sit Assist Independent Sit to Supine Sit to Supine Assist Independent Scooting Scooting to Edge of Independent Bed Scooting Up and Down Independent in Bed OT-Transfer Assessment Sit to and From Stand Sit to and from Contact Guard Assistance Stand Transfers Transfer Ability Contact Guard Assistance Technique Transfer Destination Bed,Toilet Transfer Technique Stand Step Pivot Devices Transfer Assistive Gait Belt,Front Wheeled Walker Devices OT- Gait Assessment Gait Gait Assistance Contact Guard Assist Required: Distance (Feet) 25 Assistive Devices Assistive Device Gait Belt,Front Wheeled Walker Comments Gait Ability Pt amb to bathroom for toileting, then to the sink for Comments sink side ADLs, and finally back to bed OT- Balance Assessment Sitting Balance and Reactions Static Sitting Normal Balance Ability Dynamic Sitting Good Balance Ability Standing Balance and Reactions Static Standing Good Balance Ability Dynamic Standing Fair Balance Ability M8 OT- IP Objective Assessments Start: 11/12/24 16:42 Freq: Status: Active Protocol: Document 11/12/24 16:42 RUTHANNSCKALIE (Rec: 11/12/24 16:56 [facility] Desktop) OT Gross Range of Motion Upper Extremity Range of Motion Assessment Within Functional Limits OT Strength Upper Extremity Strength Assessment Within Functional Limits Hand College Tutor Strength Hand Dominance Right OT- Coordination Assessment Upper Extremity Finger to Nose Test Within Functional Limits Finger Tapping Test Within Functional Limits OT-Muscle Tone Assessment Muscle Tone WNL Yes OT Sensation Assessment Edema Edema Absent M9 OT- IP Assessment and Plan Start: 11/12/24 16:42 Freq: Status: Active Protocol: Document 11/12/24 16:42 RUTHANNSCKALIE (Rec: 11/12/24 16:56 [facility] Desktop) OT Summary Assessment and Plan Potential Rehabilitation Excellent Potential Analytic Complexity Low at Evaluation Summary OT Impairments Balance,Functional Cognition,Functional Mobility, Grooming,Dressing,Toileting,Bathing,Toilet Transfers, Shower Transfers Progress Towards Progressing Toward Goals Goals Assessment Summary Pt is an 79 yo F who was admitted due to a GI bleed. Pt lives alone in a half-way apartment [facility], but has been at [facility] for rehab following a recent hospitalization. Pt presents with cognitive concerns, scoring 15/30 on SLUMS examination which indicates dementia. Pt presents with decreased BADLs and functional mobility as well. Skilled OT services are appropriate to address these deficits. Pt would benefit from SNF for rehab to progress towards PLOF. Pt may need more assistance on dc home due to cognition. This should continue to be assessed. Goals Grooming Goal Independent Dressing Goal Independent Toileting Goal Independent Bathing Goal Independent Toilet Transfer Goal Independent Days to Meet Goals 10 Frequency of Treatment Other frequency 5x/wk Treatment Plan OT Treatment Plan ADL Training,Functional Cognition Training,Functional Mobility,Therapeutic Exercises,Patient/Family Education ,Discharge Planning Discharge Recommendations OT Discharge SNF Rehab Recommendations Transportation Needs Private Vehicle at Discharge
[2024-11-12] MEDS: ATORVASTATIN 20 MG TABLET 10 MG PO (20:33)
[2024-11-12] MEDS: DONEPEZIL 5 MG TABLET PO (20:33)
[2024-11-13] MEDS: PANTOPRAZOLE DR 20 MG TABLET PO (06:33)
[2024-11-13 07:20] LABS: Hematocrit 27.8 % (36-46); Hemoglobin 9.2 g/dL (12.0-16.0)
[2024-11-13 08:00] VITALS: BP 101/75; PULSE 106; RESP 17; TEMP 37.2; O2SAT 97
[2024-11-13 09:09] VITALS: BP 101/75; PULSE 106
[2024-11-13] MEDS: CLOPIDOGREL 75 MG TABLET PO (09:09)
[2024-11-13] MEDS: LOSARTAN 25 MG TABLET PO (09:09)
[2024-11-13] MEDS: CITALOPRAM 10 MG TABLET PO (09:09)
[2024-11-13 09:10] VITALS: BP 101/75; PULSE 106
[2024-11-13] MEDS: ASPIRIN EC 81 MG TABLET PO (09:10)
[2024-11-13] MEDS: METOPROLOL ER 25 MG TABLET PO (09:10)
[2024-11-13] MEDS: ACETAMINOPHEN 325 MG TABLET 650 MG PO ×2 (11:30→20:58)
--- NOTE | 2024-11-13 14:10 | PT.IPTN ---
Current Diagnoses Acute posthemorrhagic anemia (11/10/24) Mixed hyperlipidemia (11/10/24) Unspecified dementia, unspecified severity, without behavioral disturbance, psychotic disturbance, mood disturbance, and anxiety (11/10/24) Essential (primary) hypertension (11/10/24) Atherosclerotic heart disease of [place] coronary artery without angina pectoris (11/10/24) Gastro-esophageal reflux disease without esophagitis (11/10/24) Diaphragmatic hernia without obstruction or gangrene (11/10/24) Gastrointestinal hemorrhage, unspecified (11/10/24) Physical Therapy Treatment Note M2 PT-IP Current Condition Start: 11/12/24 14:37 Freq: NEEDED Status: Active Protocol: Document 11/12/24 13:55 AB (Rec: 11/12/24 14:52 AB [id number]) Physical Therapy Current Condition Current Condition Evaluation Date 11/12/24 Treatment Diagnosis GI bleed; difficulty in walking Onset Date 11/10/24 M3 PT-IP Subjective Start: 11/12/24 14:37 Freq: NEEDED Status: Active Protocol: Document 11/13/24 14:10 AB (Rec: 11/13/24 17:38 AB Desktop) Subjective Physical Therapy Visit Type Type Treatment Note Visit Start Time 14:10 Visit Stop Time 14:30 Number of WATERWORKS PUMP STATION OPERATOR Visits 0 Physical Therapy Visit Comments Patient Comments agreeable to do PT M4 PT-IP Mobility and Gait Start: 11/12/24 14:37 Freq: NEEDED Status: Active Protocol: Document 11/13/24 14:10 AB (Rec: 11/13/24 17:38 AB Desktop) PT-Transfer Assessment Sit to and From Stand Sit to and from Contact Guard Assistance,1 Person Assistance,Use of Stand Upper Extremities Equipment Transfer Assistive Front Wheeled Walker Device Orthotic/Prosthetic No Devices or Brace: Transfers Transfer Destination Toilet Transfer Technique ambulated Transfer Ability Level of Assist Contact Guard Assistance,1 Person Assistance,Use of Upper Extremities Comments Mobility Comments pt sitting on EOB and agreed to do PT. sit to stand CGA and ambulated in room using FWW ~ 30 ft CGA. pt requested to use the toilet and ambulated to the toilet using FWW CGA. required assist with brief management. sit to stand from the toilet using grab bar CGA and ambulated towards the sink using FWW CGA. able to maintain standing CGA while completing handwashing. pt ambulated to chair using FWW CGA. informed nurse that pt did a bowel movement and seems to have blood on it. nurse wanted to check pt's buttocks for source of blood. sit to stand from chair CGA and also assisted pt with brief change. pt does not want to stay seated on chair but wants to sit on EOB. pt ambulated to EOB using fWW CGA. table and call light next to pt. bed alarm on. Gait Assessment Gait Gait Assistance Contact Guard Assist Required: Distance (Feet) 30 Able to Maintain Yes Weight Bearing Status During Gait Assistive Devices Assistive Device Gait Belt,Front Wheeled Walker Orthotic/Prosthetic No Devices or Brace: Gait Deviations General Gait Pattern Antalgic,Decreased Stride Length,Decreased Feet Clearance Factors Limiting Gait Function Factors Limiting Decreased Activity Tolerance,Decreased Strength,Limited Gait Function Range of Motion,Pain,Poor Balance,Poor Safety Awareness M5 PT-IP Objective Assessments Start: 11/12/24 14:37 Freq: NEEDED Status: Active Protocol: Document 11/12/24 13:55 AB (Rec: 11/12/24 14:52 AB [id number]) Orientation Orientation/Cognition Level of Alertness Alert Orientation Name Safety Awareness Decreased Safety Awareness Memory Description Short Term Impaired,Fpc Impaired Gross Range of Motion Lower Extremity ROM Assessment Within Functional Limits Strength Lower Extremity Strength Assessment Within Functional Limits Muscle Tone Muscle Tone WNL Yes M6 PT-IP Treatment Start: 11/12/24 14:37 Freq: NEEDED Status: Active Protocol: Document 11/13/24 14:10 AB (Rec: 11/13/24 17:38 AB Desktop) Physical Therapy Treatment Education Education Provided Safety M7 PT-IP Assessment and Plan Start: 11/12/24 14:37 Freq: NEEDED Status: Active Protocol: Document 11/13/24 14:10 AB (Rec: 11/13/24 17:38 AB Desktop) PT Summary Assessment and Plan Potential Rehabilitation Good Potential Summary Impairments Pain,ROM,Strength,Balance,Coordination,Sensation,Tone, Cognition,Bed Mobility,Transfers,Gait,Activity Tolerance Progress Towards Progressing Toward Goals Goals Assessment Summary pt improving with mobility and seems steadier today with ambulation compared to yesterday. pt continues to require cues for safety and CGA for transfers and ambulation using FWW. pt with decrease safety awareness affecting independence level. pt will benefit from SNF rehab to improve mobility and function. Goals Bed Mobility Goal Independent Transfer Goal Independent,Front Wheeled Walker Gait Goal Independent,Front Wheel Walker Gait Distance 200 Days to Meet Goals 10 Frequency of Treatment Frequency Of Once a Day Treatment Treatment Plan Physical Therapy Bed Mobility Training,Transfer Training,Gait Training, Treatment Plan Therapeutic Exercise,Balance Retraining,Discharge Planning,Hot or Cold Pack,Neuromuscular Re-ed, Coordination Retraining,Manual Therapy Precautions Other Precautions falls Recommendations To Nursing Amount of Assist 1 Person Assist Needed Discharge Recommendations PT Discharge SNF Rehab Recommendations Transportation Needs Private Vehicle,Wheelchair/Cabulance at Discharge - PT assist 1
--- NOTE | 2024-11-13 16:09 | P.PN_ITS ---
Subjective Subjective Date Patient Seen: 11/13/24 Interval history: Chief complaint: Subjective reports of melena by [facility] staff with no symptoms of pain or signs reported by patient History of present illness: 11/10: 79 y/o with PMH of very recent NSTEMI, V-fib arrest, PPM and PCI with NATHALIE to LAD in [facility] (10/14 - 11/07), history of dementia, GERD, HH, HTN, HLD, referred from SNF where she was discharged to after the PCI for black, tarry stools. Prior to hospitalization in with NSTEMI, 2nd degree AV block, PAF, she had an episode of hematemesis which repeated in the hospital. EGD revealed gastritis and hiatal hernia. Initially on Brillinta that was switched to Plavix. Discharged to SNF on Plavix and Eliquis. On admission to [place] Hb 10.2, 3 points drop from few months ago. She had several black stools in the NF. Vital signs are stable and w/o angina. EKG ordered at the time of admission - pending.Without abdominal pain, nausea, vomiting or hematemesis. PT, PTT mildly elevated, hypokalemia of 3.1, Admitted to medicine, monitored, NPO, IVFs, IV PPI. Hospital course: 11/11: She was doing well, alert and calm. She was no problems. No abdominal pain, nausea or vomiting. One brown stool. 11/12: Two brown stools, no diarrhea, no melena. Hemoglobin remained stable. We attempted to get her back to her usp facility, however she needed now have a pre authorization from [facility]. This is not able to be obtained due to it being Friday. She was not able to leave the hospital, likely now until Friday. 11/13: Patient asking when she can return to usp had a trace of blood on the toilet paper today hemorrhoids were present stool is brown no melena no diarrhea hemoglobin stable 9.2 Review of systems: No fever or chills headache diplopia blurred vision No chest pain shortness for breath wheezing No nausea vomiting diarrhea constipation No paresthesia paresis Physical exam: Elderly female alert curious no acute distress HEENT unremarkable Heart rate and rhythm regular no murmurs Lungs clear Abdomen Extremities no edema Neuro nonfocal Assessment and plan: 1. Concern for melena with two brown stools since arriving at the hospital, resolved. * Hemoglobin stable no melena with bowel movements 2. CAD S/P recent NATHALIE. Stable. * Continue all core measures 3. PAF, stable. * Sinus rhythm today 4. Spinal stenosis and chronic back pain, stable. * Continue maintenance medication 5. HTN, stable. * off Toprol XL and losartan/HCTZ 6. Dementia, stable. * No change 7. Anxiety and depression, stable. * No change DVT prophylaxis: * Not indicated Code status: * Full code Disposition: * returned to [facility] pending a authorization (probably Wednesday 11/15) Time based billing: * 25 minutes were involved in management this patient including [id number] patient evaluation review of records documentation review of objective laboratory findings and discussion of treatment plan with care management team and nursing staff Exam Vital Signs (past 8 hours): - 11/13/24 08:30 11/13/24 09:09 11/13/24 09:10 Pulse Rate 106 H 106 H Blood Pressure 101/75 101/75 Oxygen Delivery Method Room Air Oxygen Delivery Method Room Air Oxygen Flow Rate 0 Objective Labs 11/13/24 06:18 11/11/24 04:10 Labs: Laboratory Results - last 24 hr 11/12/24 11/13/24 15:07 06:18 Hgb 9.2 L Hct 27.8 L Stl C. cayetanensis PCR Not detected Stool Rotavirus (PCR) Not detected Stool Adenovirus (PCR) Not detected Stool Astrovirus (PCR) Not detected Stool Cryptosporidium PCR Not detected Stl E.coli Shiga Tox PCR Not detected St Sh/Enteroin Ecoli PCR Not detected Stl Enterotoxigenic E PCR Not detected Stool EPEC (PCR) Not detected Stl E. histolytica PCR Not detected Stool Giardia Lamblia PCR Not detected Stool Sapovirus (PCR) Not detected Stl P. shigelloides PCR Not detected St Y.enterocolitica PCR Not detected Stool Vibrio (PCR) Not detected Stl Vibrio cholerae PCR Not detected Stl Enteroaggr Ecoli PCR Not detected Stl Norovirus GI/GII PCR Not detected Campylobacter (PCR) Not detected C. difficile Tox (PCR) Not detected Salmonella (PCR) Not detected PFSH Medical History Microscopic hematuria Fibromyalgia Colon polyps Notalgia paresthetica Lipoma Hiatal hernia Surgical History History of breast lump/mass excision Family History Father Hypertension Alcoholism Mother Cancer Osteoporosis Sister Alcoholism Depression Hypertension Suicide Brother Alcoholism Social History household members: none Smoking Status: Never smoker Tobacco: How many years used: 10 alcohol intake: current substance use type: does not use Assessment & Plan Time-Based Coding :: [TOTAL MINUTES] spent with patient and on the chart (including review of chart, obtaining history, exam, reviewing outside data, placing orders, documenting exam and treatment plan, and counseling patient) on [DATE]. Quality VTE Deep Vein Thrombosis/Pulmonary Embolism Present on Admission: No
[2024-11-13 19:13] VITALS: BP 125/66; PULSE 63; RESP 19; TEMP 36.3; O2SAT 98
[2024-11-13] MEDS: ATORVASTATIN 20 MG TABLET 10 MG PO (20:58)
[2024-11-13] MEDS: DONEPEZIL 5 MG TABLET PO (20:59)
[2024-11-14 06:01] LABS: Hematocrit 29.3 % (36-46); Hemoglobin 9.8 g/dL (12.0-16.0)
[2024-11-14] MEDS: PANTOPRAZOLE DR 20 MG TABLET PO (06:06)
[2024-11-14 07:00] VITALS: BP 118/74; PULSE 85; RESP 21; TEMP 36.1; O2SAT 99
[2024-11-14] MEDS: LOSARTAN 25 MG TABLET PO (10:04)
[2024-11-14] MEDS: METOPROLOL ER 25 MG TABLET PO (10:05)
[2024-11-14] MEDS: CITALOPRAM 10 MG TABLET PO (10:05)
[2024-11-14] MEDS: ASPIRIN EC 81 MG TABLET PO (10:05)
[2024-11-14] MEDS: CLOPIDOGREL 75 MG TABLET PO (10:05)
--- NOTE | 2024-11-14 11:19 | PM.PN.1 ---
Subjective Subjective Date Patient Seen: 11/14/24 Interval history: Chief complaint: Subjective reports of melena by senior living staff with no symptoms of pain or signs reported by patient History of present illness: 11/10: 79 y/o with PMH of very recent NSTEMI, V-fib arrest, PPM and PCI with NATHALIE to LAD in [facility] (10/14 - 11/07), history of dementia, GERD, HH, HTN, HLD, referred from SNF where she was discharged to after the PCI for black, tarry stools. Prior to hospitalization in with NSTEMI, 2nd degree AV block, PAF, she had an episode of hematemesis which repeated in the hospital. EGD revealed gastritis and hiatal hernia. Initially on Brillinta that was switched to Plavix. Discharged to SNF on Plavix and Eliquis. On admission to [place] Hb 10.2, 3 points drop from few months ago. She had several black stools in the NF. Vital signs are stable and w/o angina. EKG ordered at the time of admission - pending.Without abdominal pain, nausea, vomiting or hematemesis. PT, PTT mildly elevated, hypokalemia of 3.1, Admitted to medicine, monitored, NPO, IVFs, IV PPI. Hospital course: 11/11: She was doing well, alert and calm. She was no problems. No abdominal pain, nausea or vomiting. One brown stool. 11/12: Two brown stools, no diarrhea, no melena. Hemoglobin remained stable. We attempted to get her back to her senior living facility, however she needed now have a pre authorization from [facility]. This is not able to be obtained due to it being Friday. She was not able to leave the hospital, likely now until Friday. 11/13: Patient asking when she can return to senior living had a trace of blood on the toilet paper today hemorrhoids were present stool is brown no melena no diarrhea hemoglobin stable 9.2 11/14: No new complaints at all patient active and tolerating diet the waiting insurance approval to return to senior living Hemoglobin improved to 9.8 Review of systems: No fever or chills headache diplopia blurred vision No chest pain shortness for breath wheezing No nausea vomiting diarrhea constipation No paresthesia paresis Physical exam: Elderly female alert curious no acute distress HEENT unremarkable Heart rate and rhythm regular no murmurs Lungs clear Abdomen Extremities no edema Neuro nonfocal Assessment and plan: 1. Concern for melena with two brown stools since arriving at the hospital, resolved. Hemoglobin stable and improving no melena with bowel movements 2. CAD S/P recent NATHALIE. Stable. Continue all core measures 3. PAF, stable. Sinus rhythm today 4. Spinal stenosis and chronic back pain, stable. Continue maintenance medication 5. HTN, stable. off Toprol XL and losartan/HCTZ 6. Dementia, stable. No change 7. Anxiety and depression, stable. No change DVT prophylaxis: Not indicated Code status: Full code Disposition: returned to [facility] pending a authorization (probably Wednesday 11/15) Time based billin minutes were involved in management this patient including [id number] patient evaluation review of records documentation review of objective laboratory findings and discussion of treatment plan with care management team and nursing staff Exam Vital Signs (past 8 hours): - 11/14/24 07:00 Temperature 97 F L Pulse Rate 85 Respiratory Rate 21 Blood Pressure 118/74 Pulse Oximetry 99 Oxygen Delivery Method Room Air Oxygen Flow Rate 0 Objective Labs 11/14/24 05:50 11/11/24 04:10 Labs: Laboratory Results - last 24 hr 11/14/24 05:50 Hgb 9.8 L Hct 29.3 L PFSH Medical History Microscopic hematuria Fibromyalgia Colon polyps Notalgia paresthetica Lipoma Hiatal hernia Surgical History History of breast lump/mass excision Family History Father Hypertension Alcoholism Mother Cancer Osteoporosis Sister Alcoholism Depression Hypertension Suicide Brother Alcoholism Social History household members: none Smoking Status: Never smoker Tobacco: How many years used: 10 alcohol intake: current substance use type: does not use Assessment & Plan Time-Based Coding :: [TOTAL MINUTES] spent with patient and on the chart (including review of chart, obtaining history, exam, reviewing outside data, placing orders, documenting exam and treatment plan, and counseling patient) on [DATE]. Quality VTE Deep Vein Thrombosis/Pulmonary Embolism Present on Admission: No
--- NOTE | 2024-11-14 12:35 | PT.IPTN ---
Current Diagnoses Acute posthemorrhagic anemia (11/10/24) Mixed hyperlipidemia (11/10/24) Unspecified dementia, unspecified severity, without behavioral disturbance, psychotic disturbance, mood disturbance, and anxiety (11/10/24) Essential (primary) hypertension (11/10/24) Atherosclerotic heart disease of [place] coronary artery without angina pectoris (11/10/24) Gastro-esophageal reflux disease without esophagitis (11/10/24) Diaphragmatic hernia without obstruction or gangrene (11/10/24) Gastrointestinal hemorrhage, unspecified (11/10/24) Physical Therapy Treatment Note M2 PT-IP Current Condition Start: 11/12/24 14:37 Freq: NEEDED Status: Active Protocol: Document 11/12/24 13:55 AB (Rec: 11/12/24 14:52 AB [id number]) Physical Therapy Current Condition Current Condition Evaluation Date 11/12/24 Treatment Diagnosis GI bleed; difficulty in walking Onset Date 11/10/24 M3 PT-IP Subjective Start: 11/12/24 14:37 Freq: NEEDED Status: Active Protocol: Document 11/14/24 08:45 SAK (Rec: 11/14/24 12:35 SAK [id number]) Subjective Physical Therapy Visit Type Type Treatment Note Visit Start Time 08:45 Visit Stop Time 09:02 Number of FLASH WELDING MACHINE OPERATOR Visits 0 Physical Therapy Visit Comments Patient Comments agreeable to do PT Therapy Pain Assessment Pain When Pain Assessed After Treatment Pain Present Pain Present Denied Pain M4 PT-IP Mobility and Gait Start: 11/12/24 14:37 Freq: NEEDED Status: Active Protocol: Document 11/14/24 08:45 SAK (Rec: 11/14/24 12:35 SAK [id number]) PT-Bed Mobility Assessment Supine to Sit Supine to Sit Standby Assistance PT-Transfer Assessment Sit to and From Stand Sit to and from Contact Guard Assistance,1 Person Assistance,Use of Stand Upper Extremities Equipment Transfer Assistive Front Wheeled Walker Device Orthotic/Prosthetic No Devices or Brace: Transfers Transfer Destination Bed Transfer Technique ambulated Transfer Ability Level of Assist Contact Guard Assistance,1 Person Assistance,Use of Upper Extremities Comments Mobility Comments Patient supine in bed HOB elevated. Transferred to sit EOB with CGA and cues. Gait training 30 ft with FWW and CGA. Patient requested to sit on EOB instead of chair. Pt. table and call light placed next to pt. Bed alarm on. Gait Assessment Gait Gait Assistance Contact Guard Assist Required: Distance (Feet) 30 Able to Maintain Yes Weight Bearing Status During Gait Assistive Devices Assistive Device Gait Belt,Front Wheeled Walker Orthotic/Prosthetic No Devices or Brace: Gait Deviations General Gait Pattern Antalgic,Decreased Stride Length,Decreased Feet Clearance Factors Limiting Gait Function Factors Limiting Decreased Activity Tolerance,Decreased Strength,Limited Gait Function Range of Motion,Pain,Poor Balance,Poor Safety Awareness M5 PT-IP Objective Assessments Start: 11/12/24 14:37 Freq: NEEDED Status: Active Protocol: Document 11/12/24 13:55 AB (Rec: 11/12/24 14:52 AB [id number]) Orientation Orientation/Cognition Level of Alertness Alert Orientation Name Safety Awareness Decreased Safety Awareness Memory Description Short Term Impaired,Fitness Management Director Impaired Gross Range of Motion Lower Extremity ROM Assessment Within Functional Limits Strength Lower Extremity Strength Assessment Within Functional Limits Muscle Tone Muscle Tone WNL Yes M6 PT-IP Treatment Start: 11/12/24 14:37 Freq: NEEDED Status: Active Protocol: Document 11/14/24 08:45 [facility] (Rec: 11/14/24 12:35 [facility] [id number]) Physical Therapy Treatment Education Education Provided Safety M7 PT-IP Assessment and Plan Start: 11/12/24 14:37 Freq: NEEDED Status: Active Protocol: Document 11/14/24 08:45 [facility] (Rec: 11/14/24 12:35 [facility] [id number]) PT Summary Assessment and Plan Potential Rehabilitation Good Potential Summary Impairments Pain,ROM,Strength,Balance,Coordination,Sensation,Tone, Cognition,Bed Mobility,Transfers,Gait,Activity Tolerance Progress Towards Progressing Toward Goals Goals Assessment Summary Pt continues to require cues for safety and CGA for transfers and ambulation using FWW. Pt demonstrates decreased safety awareness affecting independence level . Pt will benefit from SNF rehab to improve mobility and function. Goals Bed Mobility Goal Independent Transfer Goal Independent,Front Wheeled Walker Gait Goal Independent,Front Wheel Walker Gait Distance 200 Days to Meet Goals 10 Frequency of Treatment Frequency Of Once a Day Treatment Treatment Plan Physical Therapy Bed Mobility Training,Transfer Training,Gait Training, Treatment Plan Therapeutic Exercise,Balance Retraining,Discharge Planning,Hot or Cold Pack,Neuromuscular Re-ed, Coordination Retraining,Manual Therapy Precautions Other Precautions history of falls Recommendations To Nursing Amount of Assist Standby Assistance Needed Discharge Recommendations PT Discharge SNF Rehab Recommendations Transportation Needs Private Vehicle,Wheelchair/Cabulance at Discharge - PT assist 1
--- NOTE | 2024-11-14 13:16 | PC.NURSE ---
Patient is alert and oriented x3 today. She is moving around in her room independently but is letting staff know when she is getting up and ambulating in room. She has went to the bathroom a couple of times and is resting comfortably now.
--- NOTE | 2024-11-14 13:28 | CM.DPC ---
DCP SNF Cont: Per MD, pt stable for discharge to SNF once auth secured. SW confirmed with [facility] admissions that pt's [facility] M[facility] auth is still pending and faxed updated PT/MD notes towards ongoing insurance auth. JOSE Alicea
[2024-11-14 19:00] VITALS: BP 119/75; RESP 20; TEMP 36.3; O2SAT 99
[2024-11-14] MEDS: ATORVASTATIN 20 MG TABLET 10 MG PO (20:37)
[2024-11-14] MEDS: DONEPEZIL 5 MG TABLET PO (20:38)
[2024-11-15 07:20] LABS: Hematocrit 27.8 % (36-46); Hemoglobin 9.2 g/dL (12.0-16.0)
[2024-11-15 07:35] VITALS: BP 109/66; PULSE 89; RESP 14; TEMP 36.6; O2SAT 97
--- NOTE | 2024-11-15 08:48 | P.DS_ITS ---
History of Present Illness History of Present Illness Date Patient Seen: 11/15/24 Chief complaint: Rectal Bleeding Narrative: Chief complaint: Subjective reports of melena by care home staff with no symptoms of pain or signs reported by patient History of present illness: 11/10: 79 y/o with PMH of very recent NSTEMI, V-fib arrest, PPM and PCI with NATHALIE to LAD in [facility] (10/14 - 11/07), history of dementia, GERD, HH, HTN, HLD, referred from SNF where she was discharged to after the PCI for black, tarry stools. Prior to hospitalization in with NSTEMI, 2nd degree AV block, PAF, she had an episode of hematemesis which repeated in the hospital. EGD revealed gastritis and hiatal hernia. Initially on Brillinta that was switched to Plavix. Discharged to SNF on Plavix and Eliquis. On admission to [facility] Hb 10.2, 3 points drop from few months ago. She had several black stools in the NF. Vital signs are stable and w/o angina. EKG ordered at the time of admission - pending.Without abdominal pain, nausea, vomiting or hematemesis. PT, PTT mildly elevated, hypokalemia of 3.1, Admitted to medicine, monitored, NPO, IVFs, IV PPI. Hospital course: 11/11: She was doing well, alert and calm. She was no problems. No abdominal pain, nausea or vomiting. One brown stool. 11/12: Two brown stools, no diarrhea, no melena. Hemoglobin remained stable. We attempted to get her back to her care home facility, however she needed now have a pre authorization from [facility]. This is not able to be obtained due to it being Friday. She was not able to leave the hospital, likely now until Friday. 11/13: Patient asking when she can return to care home had a trace of blood on the toilet paper today hemorrhoids were present stool is brown no melena no diarrhea hemoglobin stable 9.2 11/14: No new complaints at all patient active and tolerating diet the waiting insurance approval to return to care home Hemoglobin improved to 9.8 11/15: No new complaints Review of systems: No fever or chills headache diplopia blurred vision No chest pain shortness for breath wheezing No nausea vomiting diarrhea constipation No paresthesia paresis Physical exam: Elderly female alert curious no acute distress HEENT unremarkable Heart rate and rhythm regular no murmurs Lungs clear Abdomen Extremities no edema Neuro nonfocal Assessment and plan: 1. Concern for melena with two brown stools since arriving at the hospital, resolved. * Hemoglobin stable and improving no melena with bowel movements 2. CAD S/P recent NATHALIE. Stable. * Continue all core measures 3. PAF, stable. * Sinus rhythm today 4. Spinal stenosis and chronic back pain, stable. * Continue maintenance medication 5. HTN, stable. * off Toprol XL and losartan/HCTZ 6. Dementia, stable. * No change 7. Anxiety and depression, stable. * No change DVT prophylaxis: * Not indicated Code status: * Full code Disposition: * returned to [facility] pending a authorization (probably Wednesday 11/15) Time based billing: Discharge Providers Provider Date of admission: 11/10/24 19:55 Discharge Date: 11/15/24 Primary care physician: Karla Jarvis DO Consults: 11/10/24 23:26 Consult to Pharmacy Routine Comment: patient reports no longer taking many of her meds 11/12/24 10:26 Consult to Physical Therapy Evaluate & Treat Comment: Physician Instructions: Evaluate and Treat 11/12/24 10:27 Consult to Occupational Therapy Evaluate & Treat Comment: Physician Instructions: Evaluate and treat Discharge provider: Robert Long MD Exam Vital Signs (past 8 hours): - 11/15/24 07:35 Temperature 97.9 F Pulse Rate 89 Respiratory Rate 14 Blood Pressure 109/66 Pulse Oximetry 97 Oxygen Flow Rate 0 Oxygen Delivery Method Room Air Oxygen Flow Rate 0 Objective Labs 11/15/24 07:12 11/11/24 04:10 Labs: Laboratory Results - last 24 hr 11/15/24 07:12 Hgb 9.2 L Hct 27.8 L PFSH Medical History Microscopic hematuria Fibromyalgia Colon polyps Notalgia paresthetica Lipoma Hiatal hernia Surgical History History of breast lump/mass excision Family History Father Hypertension Alcoholism Mother Cancer Osteoporosis Sister Alcoholism Depression Hypertension Suicide Brother Alcoholism Social History household members: none Smoking Status: Never smoker Tobacco: How many years used: 10 alcohol intake: current substance use type: does not use Discharge Plan Discharge Plan Patient Disposition: SNF I certify the postop hospital care home care is medically necessary on a continuing basis for any conditions for which he/ she received care during this hospitalization.: Yes The receiving facility has agreed to accept transfer and provide medical treatment.: Yes Discharge orders & Medications Prescriptions: Continued (DME) Disabled Parking Permit See Rx Instructions .ROUTE .MEDSUPPLY Qty: 1 0RF Rx Instructions: Valid for 5 years cholecalciferol (vitamin D3) 50 mcg (2,000 unit) capsule 50 mcg PO DAILY ascorbic acid (vitamin C) 1,000 mg capsule 1 g PO DAILY vitamin B complex 1 tab PO DAILY donepezil [Aricept] 10 mg tablet 10 mg PO BEDTIME Qty: 90 0RF Ultra CoQ10 75 mg capsule 75 mg PO DAILY Qty: 90 3RF aspirin [Adult Low Dose Aspirin] 81 mg tablet,delayed release (DR/EC) 81 mg PO DAILY atorvastatin 10 mg tablet 10 mg PO DAILY Qty: 90 3RF citalopram 10 mg tablet 10 mg PO DAILY clopidogrel 75 mg tablet 75 mg PO DAILY colchicine 0.6 mg tablet 0.6 mg PO DAILY donepezil 5 mg tablet 5 mg PO BEDTIME lidocaine 4 % adhesive patch,medicated 1 patch topical Q24H Patient Comments: apply to left lower back Rx Instructions: may leave on for up to 12 hrs loperamide 2 mg tablet 2 mg PO Q2-4H PRN (Reason: loose stool) Rx Instructions: administer after each loose stool until symptoms controlled; do not exceed 8 mg per 24 hrs pantoprazole 40 mg tablet,delayed release (DR/EC) 40 mg PO BID losartan 25 mg tablet 25 mg PO DAILY Rx Instructions: hold for sbp less than 100 and HR less than 60 metoprolol succinate 25 mg tablet extended release 24 hr 25 mg PO DAILY empagliflozin 10 mg tablet 10 mg PO DAILY melatonin 3 mg capsule 6 mg PO BEDTIME Discontinued meloxicam 7.5 mg tablet 7.5 mg PO DAILY citalopram 40 mg tablet 40 mg PO DAILY Qty: 90 3RF losartan-hydrochlorothiazide 100-12.5 mg tablet 1 tab PO DAILY Qty: 90 3RF propranolol 20 mg tablet 20 mg PO BID PRN (Reason: anxiety about travel) Qty: 60 3RF apixaban 5 mg tablet 5 mg PO Q12H Follow up/Referrals: Karla Jarvis DO [Primary Care Provider, Medical] Visit Report/Discharge Packet Stand Alone Forms: Patient Portal/API, Stroke Signs & Symptoms Discharge Data Primary Care Provider: Karla Jarvis Attending Provider: Isael Kearns Admit Date/Time: 11/10/24 19:55 Quality VTE Deep Vein Thrombosis/Pulmonary Embolism Present on Admission: No
[2024-11-15] MEDS: METOPROLOL ER 25 MG TABLET PO (09:31)
[2024-11-15] MEDS: LOSARTAN 25 MG TABLET PO (09:31)
[2024-11-15] MEDS: CITALOPRAM 10 MG TABLET PO (09:32)
[2024-11-15] MEDS: CLOPIDOGREL 75 MG TABLET PO (09:32)
[2024-11-15] MEDS: ASPIRIN EC 81 MG TABLET PO (09:32)
--- NOTE | 2024-11-15 11:05 | CM.DPC ---
DCP Discharge SNF Per MD, pt remains medically stable to d/c to SNF as she was here through the weekend waiting for insurance auth to return to SNF and discharge orders placed. AISHA attempted to call [facility] to follow up on the SNF auth and insurance person on the phone unable to significantly answer any questions regarding SNF auth. SW spoke to Luis at [facility], covering for admissions while she is on vacation, and confirmed that they can take patient today as they received auth with transport at 1530 since they have at least one other admit today as well. AISHA secure emailed signed med list, no scripts needed, MD orders, dc summary, and no PASRR needed for return to SNF to Luis and Mike at [facility] to review. Spoke to pt's son/JOSH Shea twice with updates and he confirms he is appreciative and remains agreeable to discharge plan back to [facility] today and answered his questions. Updated child welfare manager, ANIMAL NUTRITIONIST, and RN and provided number to call report. Plan: Patient to discharge back to [facility] today via facility van at 1530 today. JOSE Alicea
--- NOTE | 2024-11-15 11:10 | PC.NURSE ---
Patient is doing well this morning, she is a&ox3. She denies any abdominal pain and is moving around in her room well.
--- NOTE | 2024-11-15 13:43 | OT.IP.TRT ---
Current Diagnoses Acute posthemorrhagic anemia (11/10/24) Mixed hyperlipidemia (11/10/24) Unspecified dementia, unspecified severity, without behavioral disturbance, psychotic disturbance, mood disturbance, and anxiety (11/10/24) Essential (primary) hypertension (11/10/24) Atherosclerotic heart disease of [place] coronary artery without angina pectoris (11/10/24) Gastro-esophageal reflux disease without esophagitis (11/10/24) Diaphragmatic hernia without obstruction or gangrene (11/10/24) Gastrointestinal hemorrhage, unspecified (11/10/24) Occupational Therapy Treatment Note M2 OT-IP Current Condition Start: 11/12/24 16:42 Freq: Status: Active Protocol: Document 11/12/24 16:42 THALIA (Rec: 11/12/24 16:56 THALIA Desktop) Occupational Therapy Current Condition Current Condition Evaluation Date 11/12/24 Treatment Diagnosis GI bleed, decreased self care Diagnosis Onset Date 11/10/24 M3 OT- IP Subjective and Pain Start: 11/12/24 16:42 Freq: Status: Active Protocol: Document 11/15/24 13:37 THALIA (Rec: 11/15/24 13:42 THALIA [id number]) OT- Subjective Occupational Therapy Visit Type Type Treatment Note Visit Start Time 09:25 Visit Stop Time 09:35 Occupational Therapy Visit Comments Patient Comments Pt was reclined in bed on entrance of OT. Pt agreed to work with OT with some encouragmeent. Patient/Caregiver Pt would like to go back to [facility] until she is Goals strong enough to return home. OT Pain Assessment Pain When Pain Assessed After Treatment Pain Present Pain Present Denied Pain M4 OT- IP ADL's Start: 11/12/24 16:42 Freq: Status: Active Protocol: Document 11/15/24 13:37 THALIA (Rec: 11/15/24 13:42 RUTHANNNHKALIE [id number]) OT [id number] Comments OT Self-Feeding not observed Comments OT ADL-Grooming General Evaluation Grooming Ability Independent Comments OT Grooming Comments Pt brushes her hair sink side without assistance. OT ADL-Oral Care General Eval Oral Care Ability Independent Comments Oral Care Comments Pt performs sink side without assist. OT ADL-Dressing General Eval Lower Body Dressing Standby Assistance Ability Areas Needing Pants/Shorts,Socks,Shoes Assistance Comments OT Dressing Comments Pt performs while seated EOB on setup of items OT ADL-Toileting Comments OT Toileting not observed Comments OT ADL-Bathing Comments OT Bathing Comments not observed. pt performs sponge bath at baseline M5 OT- IP IADL's Start: 11/12/24 16:42 Freq: Status: Active Protocol: Document 11/12/24 16:42 [facility]Rec: 11/12/24 16:56 [facility] Desktop) OT-Instrumental Activities of Daily Living Deficits IADL Deficits No Deficits Identified Medication Management Medication pt may need assist on dc based on SLUMS assessment. Pt Management Comments would benefit from further assessment Money Management Money Management Caregiver Provides Assistance Meal Preparation Meal Preparation Caregiver Provides Assist Customs Compliance Analyst Customs Compliance Analyst Caregiver Provides Assist Driving Driving Caregiver Provides Assist M6 OT- IP Functional Cognition Start: 11/12/24 16:42 Freq: Status: Active Protocol: Document 11/12/24 16:42 [facility] (Rec: 11/12/24 16:56 [facility] Desktop) Cognitive Factors Limiting Selfcare Function Cognitive Ability Level of Alertness Alert Patient Orientation Name,Age,Birthday,Place,Situation Attention Span Capable of Focused Attention,Capable of Sustained Ability Attention Ability to Follow Able to Follow Multi-Step Commands Commands Memory Description Immediate Intact,Short Term Impaired Cognitive Tests SLUMS Pt is oriented to the year and state, is able to delay recall 2/5 items, is able to do simple addition but unable to do subtraction, is able to recall 14 animals in 60 seconds, correctly labels the clock and time requested, correctly identifies the triangle and size related question to shape, and is able to answer 1/4 questions concerning a short story. Overall, pt scores 15/30 which is indicative of dementia. Cognitive Comments Cognitive Assessment Pt would benefit from [employer] assessment. Comments OT- Vision and Hearing OT- Hearing Assessment OT- Hearing WFL Assessment OT- Vision Assessment Visual Acuity Glasses For Reading M7 OT- IP Mobility and Balance Start: 11/12/24 16:42 Freq: Status: Active Protocol: Document 11/15/24 13:37 R[facility]ANNNHSIERRAANGIE (Rec: 11/15/24 13:42 [facility] [id number]) OT- Bed Mobility Assessment Supine to Sit Supine to Sit Assist Independent Sit to Supine Sit to Supine Assist Independent Scooting Scooting to Edge of Independent Bed Scooting Up and Down Independent in Bed OT-Transfer Assessment Sit to and From Stand Sit to and from Standby Assistance Stand Transfers Transfer Ability Standby Assistance Technique Transfer Destination Bed Transfer Technique Stand Step Pivot Devices Transfer Assistive Front Wheeled Walker Devices Orthotic/Prosthetic No Devices or Brace: OT- Gait Assessment Gait Gait Assistance Standby Assistance Required: Distance (Feet) 15 Assistive Devices Assistive Device Gait Belt,Front Wheeled Walker OT- Balance Assessment Sitting Balance and Reactions Static Sitting Normal Balance Ability Dynamic Sitting Good Balance Ability Standing Balance and Reactions Static Standing Good Balance Ability Dynamic Standing Good Balance Ability M8 OT- IP Objective Assessments Start: 11/12/24 16:42 Freq: Status: Active Protocol: Document 11/12/24 16:42 THALIA (Rec: 11/12/24 16:56 THALIA Desktop) OT Gross Range of Motion Upper Extremity Range of Motion Assessment Within Functional Limits OT Strength Upper Extremity Strength Assessment Within Functional Limits Hand Rectification Printer Strength Hand Dominance Right OT- Coordination Assessment Upper Extremity Finger to Nose Test Within Functional Limits Finger Tapping Test Within Functional Limits OT-Muscle Tone Assessment Muscle Tone WNL Yes OT Sensation Assessment Edema Edema Absent M9 OT- IP Assessment and Plan Start: 11/12/24 16:42 Freq: Status: Active Protocol: Document 11/15/24 13:37 THALIA (Rec: 11/15/24 13:42 THALIA [id number]) OT Summary Assessment and Plan Potential Rehabilitation Excellent Potential Analytic Complexity Low at Evaluation Summary OT Impairments Balance,Functional Cognition,Functional Mobility, Grooming,Dressing,Toileting,Bathing,Toilet Transfers, Shower Transfers Progress Towards Progressing Toward Goals Goals Assessment Summary Pt made progress with BADLs today, performing sink side ADLs I'ly and EOB ADLs on setup of items. Pt is somewhat impulsive and has somewhat decreased safety awareness when moving about the room. Pt continues to be appropriate for skilled OT services per POC. Goals Grooming Goal Independent Dressing Goal Independent Toileting Goal Independent Bathing Goal Independent Toilet Transfer Goal Independent Days to Meet Goals 10 Frequency of Treatment Other frequency 5x/wk Treatment Plan OT Treatment Plan ADL Training,Functional Cognition Training,Functional Mobility,Therapeutic Exercises,Patient/Family Education ,Discharge Planning Discharge Recommendations OT Discharge SNF Rehab Recommendations Transportation Needs Private Vehicle at Discharge
== END 2024-11-15 16:05 ==
LOC: ED 19:54 → AC 19:58
PROVIDERS: Emergency Medicine; Hospitalist; Admitting Provider Internal Medicine; Emergency Provider Family Medicine; PCP Family Medicine; Referring Provider Family Medicine; Visit Provider Internal Medicine
DX: K62.5 Hemorrhage of anus and rectum (principal); I10 Essential (primary) hypertension; E78.5 Hyperlipidemia, unspecified; F03.90 Unspecified dementia, unspecified severity, without behavioral disturbance, psychotic disturbance, mood disturbance, and anxiety; K21.9 Gastro-esophageal reflux disease without esophagitis; F41.9 Anxiety disorder, unspecified; F32.A Depression, unspecified; G25.81 Restless legs syndrome; I25.2 Old myocardial infarction; Z79.01 Long term (current) use of anticoagulants; I25.10 Atherosclerotic heart disease of native coronary artery without angina pectoris; I48.0 Paroxysmal atrial fibrillation; G89.29 Other chronic pain; M54.9 Dorsalgia, unspecified; M48.00 Spinal stenosis, site unspecified
CPT/HCPCS: 36415; 74174; 80048; 80053; 82272; 84484; 85014; 85018; 85025; 85027; 85610; 85730; 86850; 86900; 86901; 87507; 96361; 96374; 97116; 97129; 97161; 97165; 97530; 97535; 99284; G0378; J2470; J7120; Q9967